=== PATIENT | male | born 1945 | race Caucasian/White ===

== ENCOUNTER 2018-06-14 12:19 | Outpatient (CLI) | payer OTHER, SELFPAY ==
--- NOTE | 2018-06-14 12:49 | DI.REPORT_ITS ---
SYMPTOM/DIAGNOSIS: CHRONIC KIDNEY DISEASE N18.4, RT KIDNEY CA, C64.1 CALCULUS OF KIDNEY N20.0 CHEST X-RAY: PA and lateral. Comparison 02/27/17 Heart size and pulmonary vasculature are within normal limits. The lungs are clear and well expanded. No effusions or pneumothoraces are identified. IMPRESSION: No acute pulmonary process.
--- NOTE | 2018-06-14 13:00 | DI.REPORT_ITS ---
SYMPTOM/DIAGNOSIS: CHRONIC KIDNEY DISEASE, N18.4 RT KIDNEY CA C64.1 CALCULUS KIDNEY N20.0 KUB: Comparison 02/27/17. Comparison CT scan is 04/22/18 The visualized lung bases are clear. There are surgical clips in the right upper quadrant of the abdomen. No urinary tract calculi are identified. There are moderately severe degenerative changes seen in the lumbar spine particularly at the L1, L2 disc level. Degenerative changes are seen in the hips bilaterally which are mild in degree. Vascular calcifications are present. IMPRESSION: No definite urinary tract calculi.
== END 2018-06-14 12:20 ==
PROVIDERS: PCP Family Medicine; Visit Provider Urology
DX: N18.4 Chronic kidney disease, stage 4 (severe) (principal); C64.1 Malignant neoplasm of right kidney, except renal pelvis
CPT/HCPCS: 71046; 74018

== ENCOUNTER 2018-06-23 10:49 | Outpatient (CLI) | payer OTHER, SELFPAY ==
[2018-06-23 11:33] LABS: HCT 34.4 % (40.0-50.0); HGB 10.9 g/dL (13.5-17.5); Mean Corp. HGB Concentration 31.7 g/dL (32.0-36.0); Mean Corpuscular Hemoglobin 31.2 pg (27.0-33.0); Mean Corpuscular Volume 98.6 fL (80-95); Mean Platelet Volume 9.4 fL (8.0-11.0); Platelet Count 179 x1000/uL (130-400); RBC 3.49 m/cumm (4.50-6.00); RBC Distribution Width 12.4 % (11.8-14.1); White Blood Cell Count 6.25 k/cumm (4.4-10.8)
[2018-06-23 12:14] LABS: ALT 26 U/L (12-78); AST 21 U/L (15-37); Albumin 3.3 g/dL (3.4-5.0); Alkaline Phosphatase 97 U/L (46-116); Anion Gap 10.4 mmol/L (3-11); BUN 71 mg/dL (7-18); Bilirubin, Total 0.4 mg/dL (0.2-1.0); CO2 22.6 mmol/L (21.0-32.0); CREATININE 2.73 mg/dL (0.70-1.30); Calcium 8.2 mg/dL (8.5-10.1); Chloride 108 mmol/L (98-107); Estimated GFR 23.12 (mL/min/1.73m2); Glucose 89 mg/dL (70-100); Sodium 141 mmol/L (136-145); Total Protein 7.5 g/dL (6.4-8.2)
[2018-06-23 12:42] LABS: Potassium 6.5 mmol/L (3.5-5.1)
== END 2018-06-23 10:50 ==
PROVIDERS: Urology; PCP Family Medicine; Visit Provider Family Medicine
DX: E87.5 Hyperkalemia (principal); N18.4 Chronic kidney disease, stage 4 (severe); C64.1 Malignant neoplasm of right kidney, except renal pelvis; N20.0 Calculus of kidney
CPT/HCPCS: 36415; 80053; 85027; 84132

== ENCOUNTER 2018-06-29 13:32 | Outpatient (CLI) | payer OTHER, SELFPAY ==
[2018-06-29 15:42] LABS: Anion Gap 9.4 mmol/L (3-11); BUN 73 mg/dL (7-18); CO2 25.6 mmol/L (21.0-32.0); CREATININE 2.87 mg/dL (0.70-1.30); Chloride 107 mmol/L (98-107); Estimated GFR 21.76 (mL/min/1.73m2); Glucose 157 mg/dL (70-100); Potassium 5.3 mmol/L (3.5-5.1); Sodium 142 mmol/L (136-145)
== END 2018-06-29 13:33 ==
PROVIDERS: PCP Family Medicine; Visit Provider Family Medicine
DX: E87.5 Hyperkalemia (principal)
CPT/HCPCS: 36415; 80048

== ENCOUNTER 2018-07-06 03:21 | Outpatient (CLI) | payer OTHER, SELFPAY ==
[2018-07-06 11:53] LABS: Anion Gap 7.2 mmol/L (3-11); BUN 71 mg/dL (7-18); CO2 25.8 mmol/L (21.0-32.0); Calcium 8.1 mg/dL (8.5-10.1); Chloride 106 mmol/L (98-107); Estimated GFR 26.74 (mL/min/1.73m2); Glucose 135 mg/dL (70-100); Potassium 4.8 mmol/L (3.5-5.1); Sodium 139 mmol/L (136-145)
== END 2018-07-06 03:22 ==
PROVIDERS: PCP Family Medicine; Visit Provider Family Medicine
DX: E87.5 Hyperkalemia (principal)
CPT/HCPCS: 36415; 80048

== ENCOUNTER 2018-07-18 13:14 | Emergency (ER) | payer OTHER, SELFPAY ==
[2018-07-18] VITALS (28 sets, daily range): BP systolic 95–111; BP diastolic 33–63; PULSE 61–90; RESP 13–22; TEMP 36.7; O2SAT 89–99
[2018-07-18] MEDS: Dextrose 50%-Water 25 GM/50 ML SYR (13:30)
--- NOTE | 2018-07-18 13:33 | DI.RAD_ITS ---
SYMPTOM/DIAGNOSIS: NEAR SYNCOPE PORTABLE CHEST: Comparison is made with 14 June 2018. The heart is mildly enlarged, unchanged. The lungs are suboptimally inflated but appear clear. Leads overlie the chest. IMPRESSION: No acute abnormality.
[2018-07-18] MEDS: Normal Saline 1,000 ML 1000 ML IV (13:45)
[2018-07-18 13:48] LABS: Abs Immature Grans 0.02 k/cumm (0.0-0.09); Absolute Basophil Count 0.02 k/cumm (0.0-0.2); Absolute Eosinophil Count 0.12 k/cumm (0.0-0.7); Absolute Monocyte Count 0.32 k/cumm (0.11-0.7); Absolute Neutrophil Count 4.25 k/cumm (1.2-6.7); Basophils % 0.3; HCT 31.3 % (40.0-50.0); HGB 10.2 g/dL (13.5-17.5); Immature Grans % 0.3; Lymphocytes % 21.6; Mean Corp. HGB Concentration 32.6 g/dL (32.0-36.0); Mean Corpuscular Hemoglobin 31.8 pg (27.0-33.0); Mean Corpuscular Volume 97.5 fL (80-95); Mean Platelet Volume 9.2 fL (8.0-11.0); Monocytes % 5.3; Neutrophils % 70.5; Platelet Count 195 x1000/uL (130-400); RBC 3.21 m/cumm (4.50-6.00); RBC Distribution Width 11.9 % (11.8-14.1); White Blood Cell Count 6.03 k/cumm (4.4-10.8)
--- NOTE | 2018-07-18 13:48 | W.ED.GENAD ---
Discharge Plan Disposition Patient Disposition: HOME Condition: Good Discharge Details Chief Complaint: Diabetes Clinical Impression: Weakness, Hypoglycemia Primary Care Provider: Cesar Gorman ED Provider: Dexter Reeves Home Meds and New Rx's Prescriptions: No Action multivitamin 1 EACH capsule 1 cap PO DAILY RF: 0 omega-3 fatty acids-fish oil 1 EACH capsule 1 ea PO BID RF: 0 lancets [OneTouch UltraSoft Lancets] 1 EACH misc 1 ea Intradermal DAILY Qty: 100 RF: 5 hydrocortisone 28.4 GM cream 1 guillermo Topical TID PRNQty: 3 RF: 4 aspirin [Aspir-Low] 81 MG tablet,delayed release (DR/EC) 1 tab PO DAILY RF: 0 lisinopril 10 MG tablet 10 mg PO DAILY Qty: 90 RF: 4 furosemide 40 MG tablet 40 mg PO DAILY Qty: 90 RF: 3 blood sugar diagnostic [OneTouch Ultra Test] 1 EACH strip 1 ea Miscellaneous DAILY Qty: 100 RF: 4 tamsulosin 0.4 MG capsule 0.4 mg PO DAILY Qty: 90 RF: 4 pravastatin [Pravachol] 20 MG tablet 20 mg PO DAILY Qty: 90 RF: 4 ergocalciferol (vitamin D2) [Vitamin D2] 50,000 UNIT capsule 1 cap PO Monthly Qty: 12 RF: 0 solifenacin [Vesicare] 5 MG tablet 5 mg PO DAILY Qty: 90 RF: 4 glipizide 5 MG tablet 5 mg PO DAILY Qty: 90 RF: 4 sodium polystyrene sulfonate [sodium polystyrene (sorb free)] 15 GM/60 ML suspension 15 g PO BID Qty: 1000 RF: 1 gabapentin 600 MG tablet 600 mg PO HS Qty: 30 RF: 3 sodium polystyrene sulfonate [Kalexate] 15 gram powder in packet 15 gm PO DAILY Qty: 72 RF: 3 acetaminophen [Tylenol] 325 MG tablet 1 tab PO Q4H PRN PRN (Reason: joint pains or headache) Qty: 60 RF: 0 alum-mag hydroxide-simeth [Mag-Al Plus] 30 ML suspension 30 ml PO Q2H PRN PRNRF: 0 nystatin 60 GM powder 1 gm Topical BID RF: 0 lactobacillus combination no.4 [Probiotic] 1 EACH capsule 1 cap PO DAILY RF: 0 Discharge Instructions Instructions: Diabetic Hypoglycemia (ED), Weakness (ED) Additional Instructions: Please make sure to check your sugar level every 2 hours for the next 12 hours or until you go to bed. Please continue to snack throughout the day to maintain your sugar levels. If you notice any worsening of your symptoms, or any new symptoms such as vomiting, diarrhea, fever, chills, shortness of breath, chest pain, numbness, weakness, or fainting , please return immediately to the emergency department for reevaluation. Please follow up with your primary care provider as soon as possible for reassessment and reevaluation. As always, it was a pleasure participating in your medical care today. Referrals: Cesar Gorman MD [Primary Care Provider] - Discharge Data Discharge Date/Time-TO BE ENTERED AT DEPARTURE: 07/18/18 17:15 Medical Decision Making MDM Narrative Medical decision making narrative: This is a pleasant 73-year-old male who presents for evaluation of weakness in his lower extremities. Sounds like his legs just gave out on him while he was walking in the grocery store. He is able to stand during all singing at [employer] and had no difficulty before. Surprisingly physical exam showed no abnormalities whatsoever, no weakness, no neurologic deficits. While evaluating the patient we did perform a side Accu-Chek secondary to his diabetes, concern for hypoglycemia. His Accu-Chek did return in the low 40s. Patient was immediately given an amp of D50. Review of the patient's history he states that he did take his glipizide this morning, however he has not been eating. Normally he eats food whenever he takes his meds but he did not today because he was dressed for [employer]. The patient had a continued observation. In the ED, laboratory workup was performed and demonstrated no significant abnormalities. He demonstrated mild macrocytic anemia however review of previous labs demonstrates that these findings are chronic for him. He also demonstrates an elevated creatinine at 2.76 however review of previous labs demonstrate that this is his baseline. Patient was also rehydrated here in the emergency department. EKG shows no acute process. During her prolonged observation. We got serial Accu-Cheks which continued to demonstrate a normal blood sugar. Patient ate well without any difficulty. Sugars remained stable. This time I feel that he can be safely discharged home. Long discussion with him regarding the importance of hourly to 2 hourly Accu-Cheks at home, and continued snacking as he plays catch up for his low sugar. We did get the patient up and ambulated him around the emergency department he showed no signs of weakness or abnormality whatsoever. We discussed red flags which should return the patient understands. I have extensively reviewed the treatment plan and discharge instructions with the patient and their family. I have addressed all patient concerns at this time. The patient and family was made aware of what symptoms to monitor for that would warrant a return to the emergency department. Discussed the plan with the patient and family, they demonstrate verbal understanding and agreement with our assessment and plan at this time. Chest x-ray was reviewed and demonstrates no acute process. EKG 13: 32 Rate 76, WA 198, QTc 434, QRS 160, sinus rhythm. No ST elevations or depressions. No significant T-wave inversions. No Q waves. EKG unchanged from prior EKG on 04/22/18. HPI - General Adult General Date/Time Provider Initiated Documentation: 07/18/18 13:32. HPI Narrative: This is a 73-year-old male with a past medical history of type II diabetes mellitus, hyperlipidemia, cholecystectomy in April, nephrectomy secondary to renal cancer in 2015. He takes glipizide for his diabetes. Patient presents today for weakness in his legs. Patient states that he took his medications this morning but has not eaten throughout the day. He had no difficulty standing or performing any of his duties in [employer], he went to the grocery store not long after well at the grocery store he began to feel very weak all over, he states his legs just gave out on him. He tried holding onto the cart but was unable to keep himself up. Eventually found to the ground. He landed softly, he did not hit his head, he slowly lowered himself to the ground without any trauma. EMS arrived and brought him to the ER for further evaluation. The patient has not attempted to stand since then. Patient denies any other pain or complaints whatsoever. He does admit to feeling slightly fatigued but denies any chest pain, neck pain, headache, vision changes, numbness, tingling. He actually denies any weakness of his lower extremities and moves them freely in front of me. The patient has no other complaints at this time. He denies any history of stroke, and states that the symptoms have not happened in the past. He denies any aggravating or relieving factors. He denies any IV or illicit drug use. He denies any pertinent family history. Related Data Home Medications Medication Instructions Recorded Confirmed multivitamin 1 cap PO DAILY 03/25/13 07/18/18 omega-3 fatty acids-fish oil 1 ea PO BID 03/25/13 07/18/18 aspirin [Aspir-Low] 1 tab PO DAILY 10/09/15 07/18/18 lactobacillus combination no.4 1 cap PO DAILY 04/22/18 07/18/18 [Probiotic] Previous Rx's Medication Instructions Recorded acetaminophen [Tylenol] 1 tab PO Q4H PRN PRN #60 tab 08/29/15 alum-mag hydroxide-simeth [Mag-Al 30 ml PO Q2H PRN PRN btl 08/29/15 Plus] nystatin 1 gm TOPICAL BID jar 08/29/15 sodium polystyrene sulfonate 15 15 gm PO DAILY #72 each 07/15/18 gram oral powder packet Allergies Allergy/AdvReac Type Severity Reaction Status Date / Time iohexol AdvReac Unknown Unverified 07/01/18 10:21 novacaine Allergy Intermediate Uncoded 04/22/18 20:21 General Stated Complaint: Trauma SONA: 3 Review of Systems Review of Systems 10 point review of systems was performed, pertinent positives and negatives are noted in the history of present illness. PFSH Family History Mother Essential hypertension Father Essential hypertension Sister Essential hypertension Heart disease Brother Diabetes Grandmother Personal history of malignant neoplasm Social History Smoking/Tobacco Use Status: Former Tobacco Use Surgical History Colonoscopy - MAC (03/20/17) Kidney Surgery Exam Narrative Exam Narrative: 1.Const: Well-nourished, Well-developed, appearing stated age 2.Eyes: PERRL, no conjunctival injection, and symmetrical lids. 3.ENT: Atraumatic external nose and ears. Moist MM. Neck: Symmetric, trachea midline, No thyromegaly. 4.CVS: +S1/S2, No murmurs or gallops. Peripheral pulses 2+ and equal in all extremities. Brisk capillary refill in all extremities. 5.RESP: Unlabored respiratory effort. Clear to auscultation bilaterally. No wheezes rales or rhonchi 6.GI: Soft, Nontender/Nondistended, No hepatosplenomegaly. No guarding or rebound. 7.MSK: Normocephalic/Atraumatic, Extremities w/o deformity or ttp No cyanosis or clubbing, Normal movement of all extremities 5 out of 5 strength in all extremities. Normal movement of his upper and lower extremities. Normal sensation. Brisk capillary refill. +2 dorsalis pedis bilaterally. 8.Skin: Warm, Dry. No rashes or lesions. 9.Neuro: watch train inspector II-XII grossly intact. Sensation grossly intact, no focal neurologic deficits. All 6 cardinal planes of vision or fully intact. No evidence of horizontal or vertical nystagmus. The patient demonstrated a normal [id number], good dexterity. There was no evidence of dysdiadochokinesia. Patient was able to ambulate without difficulty. There was no wide-based gait. Romberg, and [id number] are both normal on testing. Sensation was intact bilaterally as well as muscle strength bilaterally for all extremities. Patient was able to verbalize butter cup with no slurring, or miss pronunciation. No midline tenderness to palpation over the CTLS spine. Normal ROM in flexion, extension, side bend, and rotation. Patient has +5 out of 5 strength in the lower extremities in dorsiflexion and plantarflexion, knee flexion and extension, hip flexion and extension. There is +2 over 2 dorsalis pedis pulses bilaterally. There is normal sensation to the skin with light touch at the foot, knee, and hip. Normal saddle sensation. Good sensation over the deep sural nerve area bilaterally. Rectal exam demonstrates good rectal tone. Reflexes are +2 over 4 in the patellar reflex bilaterally. +5 out of 5 strength in the medial, ulnar, radial nerve distribution bilaterally in the hands as well as intact light touch sensation to these dermatomes on the hands 10.Psych: (AAO) x3. Appropriate mood and affect Course Vital Signs Temperature 36.7 C 07/18/18 13:19 Pulse 69 07/18/18 13:19 Respiratory Rate 14 07/18/18 13:19 Blood Pressure 109/36 L 07/18/18 13:19 Pulse Oximetry 94 L 07/18/18 13:19 Temperature 36.7 C 07/18/18 13:19 Pulse 69 07/18/18 13:19 Respiratory Rate 14 07/18/18 13:19 Blood Pressure 109/36 L 07/18/18 13:19 Pulse Oximetry 94 L 07/18/18 13:19
[2018-07-18 13:58] LABS: ALT 21 U/L (12-78); AST 19 U/L (15-37); Alkaline Phosphatase 83 U/L (46-116); Anion Gap 7.7 mmol/L (3-11); BUN 61 mg/dL (7-18); Bilirubin, Total 0.3 mg/dL (0.2-1.0); CO2 27.3 mmol/L (21.0-32.0); CREATININE 2.76 mg/dL (0.70-1.30); Calcium 8.2 mg/dL (8.5-10.1); Chloride 105 mmol/L (98-107); Estimated GFR 22.76 (mL/min/1.73m2); Glucose 159 mg/dL (70-100); Potassium 4.8 mmol/L (3.5-5.1); Sodium 140 mmol/L (136-145)
--- NOTE | 2018-07-18 15:04 | DI.VRAD_ITS ---
EXAM: XR Chest, 1 View CLINICAL HISTORY: 73 years old, male; Signs and symptoms; Other: Near syncope TECHNIQUE: Frontal view of the chest. COMPARISON: CR - CHEST 2 VIEWS PA,LAT 06/14/2018 12:39 PM FINDINGS: Minimal interstitial lung scarring. No focal pulmonary consolidation. Costophrenic angle sharp. Heart prominent but unchanged from the prior exam and accentuated by technique. IMPRESSION: No evidence of acute cardiopulmonary disease. Dictated and Authenticated by: Parker Linares MD. Ordering:CASSIDY MCDANIELS MD
== END 2018-07-18 17:15 | disposition home or self-care (01) ==
PROVIDERS: Emergency Provider Student in an Organized Health Care Education/Training Program; PCP Family Medicine
DX: R53.1 Weakness (principal); E11.649 Type 2 diabetes mellitus with hypoglycemia without coma; Z79.84 Long term (current) use of oral hypoglycemic drugs
CPT/HCPCS: 36415; 36416; 80053; 82962; 93005; 96360; 96361; 99285; 71045; 85025; 93010

== ENCOUNTER 2018-10-14 02:48 | Outpatient (CLI) | payer OTHER, SELFPAY ==
[2018-10-14 12:06] LABS: Anion Gap 9.9 mmol/L (3-11); CO2 20.1 mmol/L (21.0-32.0); CREATININE 3.49 mg/dL (0.70-1.30); Calcium 8.4 mg/dL (8.5-10.1); Chloride 109 mmol/L (98-107); Estimated GFR 17.36 (mL/min/1.73m2); Glucose 91 mg/dL (70-100); Sodium 139 mmol/L (136-145)
[2018-10-14 12:09] LABS: BUN 106 mg/dL (7-18)
[2018-10-14 12:10] LABS: Potassium 6.4 mmol/L (3.5-5.1)
== END 2018-10-14 03:08 ==
PROVIDERS: PCP Family Medicine; Visit Provider Family Medicine
DX: E87.5 Hyperkalemia (principal)
CPT/HCPCS: 36415; 80048; 83036

== ENCOUNTER 2018-10-21 01:59 | Outpatient (CLI) | payer OTHER, SELFPAY ==
[2018-10-21 11:23] LABS: CREATININE 2.64 mg/dL (0.70-1.30); Calcium 8.2 mg/dL (8.5-10.1); Chloride 109 mmol/L (98-107); Estimated GFR 23.96 (mL/min/1.73m2); Glucose 97 mg/dL (70-100); Potassium 4.7 mmol/L (3.5-5.1); Sodium 146 mmol/L (136-145)
[2018-10-21 11:47] LABS: BUN 90 mg/dL (7-18)
== END 2018-10-21 02:19 ==
PROVIDERS: PCP Family Medicine; Visit Provider Family Medicine
DX: E87.5 Hyperkalemia (principal); E11.9 Type 2 diabetes mellitus without complications
CPT/HCPCS: 36415; 80048

== ENCOUNTER 2019-01-25 02:32 | Outpatient (CLI) | payer OTHER, SELFPAY ==
[2019-01-25 13:19] LABS: Anion Gap 10.3 mmol/L (3-11); BUN 65 mg/dL (7-18); CO2 23.7 mmol/L (21.0-32.0); CREATININE 2.74 mg/dL (0.70-1.30); Calcium 8.6 mg/dL (8.5-10.1); Chloride 106 mmol/L (98-107); Estimated GFR 22.95 (mL/min/1.73m2); Glucose 174 mg/dL (70-100); Potassium 5.5 mmol/L (3.5-5.1); Sodium 140 mmol/L (136-145)
[2019-01-25 13:32] LABS: Hemoglobin A1C 5.3 % (4.5-6.2)
== END 2019-01-25 02:52 ==
PROVIDERS: PCP Family Medicine; Visit Provider Family Medicine
DX: E11.9 Type 2 diabetes mellitus without complications (principal); E87.5 Hyperkalemia
CPT/HCPCS: 36415; 80048; 83036

== ENCOUNTER 2019-02-09 12:50 | Outpatient (CLI) | payer OTHER, SELFPAY ==
[2019-02-09 14:05] LABS: BUN 33 mg/dL (7-18); CREATININE 1.97 mg/dL (0.70-1.30); Chloride 106 mmol/L (98-107); Estimated GFR 33.59 (mL/min/1.73m2); Glucose 124 mg/dL (70-100); Potassium 4.2 mmol/L (3.5-5.1); Sodium 141 mmol/L (136-145)
== END 2019-02-09 13:10 ==
PROVIDERS: PCP Family Medicine; Visit Provider Family Medicine
DX: E87.5 Hyperkalemia (principal)
CPT/HCPCS: 36415; 80048

== ENCOUNTER 2019-02-10 17:20 | Inpatient (IN) | payer OTHER, SELFPAY ==
[2019-02-10] VITALS (60 sets, daily range): BP systolic 120–189; BP diastolic 53–108; PULSE 58–125; RESP 4–35; TEMP 36.8–38; O2SAT 77–99
--- NOTE | 2019-02-10 17:38 | ED.GENADUL_ITS ---
Discharge Plan Disposition Patient Disposition: [facility] INPATIENT Condition: Serious Discharge Details Chief Complaint: RespSymp Clinical Impression: Pneumonia, Acute exacerbation of CHF (congestive heart failure) Admit Date/Time: 02/10/19 18:56 Admit Provider: Carlos A Chong Attending Provider: Carlos A Chong Primary Care Provider: Cesar Gorman ED Provider: Kassi Rivera Discharge Data Discharge Date/Time-TO BE ENTERED AT DEPARTURE: 02/10/19 21:00 Medical Decision Making 1725 -- 73-year-old male with a history of sleep apnea, diabetes, hypertension, congestive heart failure, hyperlipidemia, chronic kidney disease status post right nephrectomy who presents with shortness of breath and chills for the past few hours. Temp 100.4 on arrival, unable to obtain accurate oral temperature due to patient's inability to hold mouth closed due to shortness of breath. Oxygen saturation 77% on room air. Patient tachypneic with increased work of breathing and accessory muscle use. Diminished breath sounds and scattered wheezing throughout. Less than 1+ pitting edema to bilateral lower extremities. Patient is morbidly obese. He initially stated he had no medical problems except obstructive sleep apnea. The chart reveals that he has extensive medical history including CHF, diabetes, etc above. He states he took his Lasix today. Differential diagnosis includes influenza, pneumonia, UTI, acute CHF exacerbation, acute COPD, CT. Patient states he smoked as a young man and denies any known history of COPD. Will place patient on BiPAP, obtain labs, portable chest x-ray, give nebs, steroids and plan for admission. Pt's chart noted that he is DNR/DNI but when asked if he would want intubation if needed, he states sure if you need to. 1745 -- patient with some improvement in breathing on BiPAP. 1800 -- respiratory rate improved, patient more comfortable on BiPAP 1830 -- labs and imaging reviewed. White blood cell count 12. Hemoglobin 11. Normal electrolytes. Lactate 1.5. Magnesium 1.7. BNP 3749. Troponin negative. Urinalysis negative. Influenza negative. Chest x-ray notes edema versus pneumonia. In the setting of fever, appears likely more infectious, small bolus of 250 cc IV fluid ordered. With elevated BNP and questionable edema, a dose of Lasix also ordered. Rocephin and Zithromax ordered. 185 -- d/w hospitalist - accepts pt for admission. Medical Records Medical records reviewed: Yes I reviewed the patient's medical records. Imaging Data Radiologic Study: Radiologist's impression: XR Chest, 1 View EXAM DATE/TIME: 02/10/2019 5:40 PM FINDINGS: Lungs: There is mild prominence to interstitial markings with increased haziness noted in the lung westfall. There is mild bilateral segmental bronchial wall thickening appreciated. Faint bilateral perihilar patchy opacifications are also noted. Pleural space: Unremarkable. No pleural effusion. No pneumothorax. Heart/Mediastinum: The heart is mildly enlarged. Bones/joints: No acute skeletal abnormalities are seen. IMPRESSION: Findings concerning for mild/early acute interstitial and airspace disease for which the main diagnostic consideration would be that of pulmonary interstitial/airspace edema. Superimposed infectious pneumonic process should be entertained in the appropriate clinical setting. ECG Data Attestation: I personally reviewed and interpreted this ECG (s) as follows: Interpretation: Rate of 120, sinus, RBBB. LAFB. [address] depression noted in V5 and V6 which is seen in previous EKG. QTc read as 622 but this is inaccurate. QRS read as 218. HPI General Mode of arrival: ambulatory . Date/Time Provider Initiated Documentation: 02/10/19 17:31 . Limitations to Documentation: no limitations . Information obtained by: patient . HPI Narrative: Patient is a 73-year-old male with a history of obstructive sleep apnea, diabetes, hypertension, kidney cancer status post right nephrectomy, congestive heart failure who presents with shortness of breath and feeling cold for the past 2 hours. He denies any known fevers, cough, vomiting, chest pain, leg swelling, recent hospital admission or chest pain. He states he did receive the flu shot this year. Related Data Home Medications Medication Instructions Recorded Confirmed hydrocortisone 1 guillermo TOPICAL TID PRN #3 script 03/25/13 02/10/19 lancets [OneTouch UltraSoft #100 ea 03/25/13 01/27/19 Lancets] multivitamin 1 cap PO DAILY 03/25/13 02/10/19 omega-3 fatty acids-fish oil 1 ea PO BID 03/25/13 02/10/19 acetaminophen [Tylenol] 1 tab PO Q4H PRN PRN #60 tab 08/29/15 02/10/19 alum-mag hydroxide-simeth [Mag-Al 30 ml PO Q2H PRN PRN btl 08/29/15 02/10/19 Plus] nystatin 1 gm TOPICAL BID jar 08/29/15 02/10/19 aspirin [Aspir-Low] 1 tab PO DAILY 10/09/15 02/10/19 lactobacillus combination no.4 1 cap PO DAILY 04/22/18 02/10/19 [Probiotic] blood sugar diagnostic strips #100 strip 11/15/18 01/27/19 furosemide 40 mg tablet 40 mg PO DAILY #90 tab 11/24/18 02/10/19 ergocalciferol (vitamin D2) 50,000 50,000 unit PO Monthly #12 tab-cap 12/24/18 02/10/19 unit capsule glipizide 5 mg tablet 5 mg PO DAILY #90 tab-cap 12/24/18 02/10/19 pravastatin 20 mg tablet 20 mg PO DAILY #90 tab-cap 12/24/18 02/10/19 solifenacin 5 mg tablet 5 mg PO DAILY #90 tab 12/24/18 02/10/19 tamsulosin 0.4 mg capsule 0.4 mg PO DAILY #90 capcr 12/24/18 02/10/19 sodium polystyrene sulfonate 15 60 ml PO DAILY #600 ml 01/25/19 02/10/19 gram/60 mL oral suspension gabapentin 600 mg tablet 600 mg PO HS #90 tab-cap 01/27/19 02/10/19 Previous Rx's Medication Instructions Recorded acetaminophen [Tylenol] 1 tab PO Q4H PRN PRN #60 tab 08/29/15 alum-mag hydroxide-simeth [Mag-Al 30 ml PO Q2H PRN PRN btl 08/29/15 Plus] nystatin 1 gm TOPICAL BID jar 08/29/15 blood sugar diagnostic strips #100 strip 11/15/18 furosemide 40 mg tablet 40 mg PO DAILY #90 tab 11/24/18 ergocalciferol (vitamin D2) 50,000 50,000 unit PO Monthly #12 tab-cap 12/24/18 unit capsule glipizide 5 mg tablet 5 mg PO DAILY #90 tab-cap 12/24/18 pravastatin 20 mg tablet 20 mg PO DAILY #90 tab-cap 12/24/18 solifenacin 5 mg tablet 5 mg PO DAILY #90 tab 02/15/19 tamsulosin 0.4 mg capsule 0.4 mg PO DAILY #90 capcr 12/24/18 sodium polystyrene sulfonate 15 60 ml PO DAILY #600 ml 01/25/19 gram/60 mL oral suspension gabapentin 600 mg tablet 600 mg PO HS #90 tab-cap 01/27/19 Allergies Allergy/AdvReac Type Severity Reaction Status Date / Time iohexol AdvReac Unknown Unverified 02/10/19 17:38 novacaine Allergy Intermediate Uncoded 02/10/19 17:38 General Stated Complaint: RespSymp SONA: 2 Review of Systems Review of Systems All systems reviewed & are unremarkable except as noted in HPI and below Constitutional Reports as per HPI, Denies chills and Denies fever(s) Eyes Denies blurry vision ENT Denies dizziness, Denies sore throat and Denies throat swelling Cardiovascular Denies chest pain and Reports dyspnea Respiratory Denies cough and Reports dyspnea Gastrointestinal Denies abdominal pain, Denies diarrhea and Denies vomiting Genitourinary Denies hematuria and Denies dysuria Musculoskeletal Denies back pain and Denies numbness Integumentary/Breasts Denies lesions and Denies rash Neurologic Denies dizziness, Denies focal weakness and Denies numbness Allergic/Immunologic Denies throat swelling PFSH Medical History Heart failure with preserved ejection fraction (Chronic 08/22/15) Tubular adenoma of colon (Resolved 03/20/17) Primary osteoarthritis of left knee (Chronic 07/01/18) Osteoarthritis (Chronic) Obesity (Chronic) Mild nonproliferative diabetic retinopathy (Chronic) Kidney calculus (Chronic 10/08/03) Joint pain (Chronic) Hyperkalemia (Chronic 07/01/18) Hypercholesterolemia (Chronic) Essential hypertension (Chronic 07/24/15) Edema (Chronic) Disorder characterized by back pain (Chronic) Diabetic polyneuropathy associated with type 2 diabetes mellitus (Chronic 07/24/15) Diabetes mellitus (Chronic 07/20/13) Common bile duct calculi (Resolved 09/18/17) 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) Chronic renal insufficiency, stage III (moderate) (Chronic 04/08/18) Morbid obesity (Chronic) Cholelithiasis (Chronic) Type II diabetes mellitus (Chronic) Chronic low back pain (Chronic) Hyperlipidemia (Chronic) History of nephrolithiasis (Chronic) Osteoarthrosis (Chronic) Chronic venous insufficiency (Chronic) Obstructive sleep apnea (Chronic) Chronic kidney insufficiency (Chronic) Congestive heart failure (Chronic) Urgency incontinence (Chronic) Diabetes (Chronic) HTN (hypertension) (Chronic) Obstructive sleep apnea (Chronic) Cholelithiasis without obstruction (Resolved) Surgical History History of nephrectomy (Acute) Hx of cholecystectomy (Chronic) Colonoscopy - MAC (03/20/17) Kidney Surgery Family History Mother Essential hypertension Father Essential hypertension Sister Essential hypertension Heart disease Brother Diabetes Grandmother Personal history of malignant neoplasm Social History Smoking/Tobacco Use Status: Former Tobacco Use Tobacco: How many years used: 6 Alcohol Intake: never Drug use: Never Substance use type: does not use Household members: family and other Details: niece Housing: apartment current occupation: retired telecommunications linesworker at [email or web address]; formerly lived [place], [place] Do you feel safe at home: Yes Do you feel safe in your relationship?: Yes Exam Const General: cooperative and acute distress respiratory Nutritional Appearance: obese morbidly obese [facility] Head: normal to inspection Face and sinus: normal facial exam Eyes General: appearance normal, both eyes and all related structures EOM: EOM intact bilaterally Neck Neck: normal visual inspection and No submandibular swelling Lymphatic: no lymphadenopathy noted Chest Chest: normal inspection of the chest and no tenderness Resp Effort & Inspection: normal respiratory effort and able to speak in complete sentences (4-5 word sentences) Auscultation: diminished lung sounds bilaterally throughout and wheezes scattered wheezes Cardio Rate: tachycardic Rhythm: regular rhythm GI Inspection: normal to inspection and obesity Palpation: soft, not firm, not rigid and nontender Auscultation: normal bowel sounds Skin General skin exam: no rashes or lesions noted Neuro General: alert, awake and oriented x3 Cognition: normal cognition Speech: speech normal Motor: muscle tone normal throughout Sensory Exam: no sensory deficits noted Extrem General: normal to inspection, full ROM, no calf tenderness bilaterally and edema Laterality: bilateral (Less than 1+ pitting bilaterally) Psych Appearance: grossly normal Mental Status: mental status grossly normal Speech and Movement: speech and movement normal Affect: normal affect Course Vital Signs Temperature 100.4 F H 02/10/19 17:32 Pulse 103 H 02/10/19 17:32 Respiratory Rate 28 H 02/10/19 17:32 Blood Pressure 156/77 H 02/10/19 17:32 Pulse Oximetry 84 L 02/10/19 17:32 Temperature 100.4 F H 02/10/19 17:32 Temperature Source Oral 02/10/19 17:32 Pulse 103 H 02/10/19 17:32 Respiratory Rate 28 H 02/10/19 17:32 Respiratory Effort Grunting 02/10/19 17:37 Blood Pressure 156/77 H 02/10/19 17:32 Pulse Oximetry 84 L 02/10/19 17:32 Oxygen Delivery Method Room Air 02/10/19 17:32 Oxygen Flow Rate 0 02/10/19 17:32 Pain Level 0 02/10/19 17:32 Lab/Test Results Lab/Test Results: 02/10/19 17:31 Blood Blood Culture - Pending 02/10/19 17:31 Blood Blood Culture - Pending
[2019-02-10] MEDS: Albuterol/Ipratropium 3 ML UPD VIAL (17:45)
[2019-02-10] MEDS: methylPREDNISolone SUCC 125 MG VIAL IVP (17:45)
[2019-02-10] MEDS: Albuterol 2.5 MG/3 ML INH SOLN VIAL 7.5 MG UPD (17:46)
[2019-02-10] MEDS: Acetaminophen 500 MG TAB 1000 MG PO (17:48)
[2019-02-10 17:54] LABS: Lactate-non-spesis 1.5 mmol/l (0.6-1.4)
[2019-02-10 18:08] LABS: Abs Immature Grans 0.04 k/cumm (0.0-0.09); Absolute Eosinophil Count 0.37 k/cumm (0.0-0.7); Absolute Lymphocyte Count 2.66 k/cumm (1.2-3.4); Absolute Monocyte Count 1.28 k/cumm (0.11-0.7); Basophils % 0.2; HCT 35.4 % (40.0-50.0); HGB 11.5 g/dL (13.5-17.5); Immature Grans % 0.3; Lymphocytes % 21.6; Mean Corp. HGB Concentration 32.5 g/dL (32.0-36.0); Mean Corpuscular Hemoglobin 31.7 pg (27.0-33.0); Mean Corpuscular Volume 97.5 fL (80-95); Mean Platelet Volume 9.8 fL (8.0-11.0); Monocytes % 10.4; Neutrophils % 64.5; Platelet Count 193 x1000/uL (130-400); RBC 3.63 m/cumm (4.50-6.00); RBC Distribution Width 12.3 % (11.8-14.1)
[2019-02-10 18:09] LABS: Absolute Basophil Count 0.02 k/cumm (0.0-0.2); Absolute Neutrophil Count 7.93 k/cumm (1.2-6.7)
--- NOTE | 2019-02-10 18:10 | DI.RAD_ITS ---
SYMPTOM/DIAGNOSIS: SOB, FEVER, ? PNEUMONIA VS CHF PORTABLE AP CHEST AT 1805 HOURS: The heart is mildly enlarged. There are mild diffuse bilateral pulmonary interstitial infiltrates raising the possibility of early CHF. Infectious process not excluded on the basis of this examination. Appropriate follow up studies requested.
[2019-02-10 18:19] LABS: ALT 36 U/L (12-78); AST 29 U/L (15-37); Albumin 3.4 g/dL (3.4-5.0); Alkaline Phosphatase 133 U/L (46-116); Anion Gap 10.5 mmol/L (3-11); BUN 31 mg/dL (7-18); Bilirubin, Total 0.4 mg/dL (0.2-1.0); CO2 26.5 mmol/L (21.0-32.0); CREATININE 1.95 mg/dL (0.70-1.30); Calcium 8.4 mg/dL (8.5-10.1); Chloride 102 mmol/L (98-107); Estimated GFR 33.99 (mL/min/1.73m2); Glucose 72 mg/dL (70-100); Magnesium 1.7 mg/dL (1.8-2.4); NT-proBNP 3749 pg/mL; Potassium 3.9 mmol/L (3.5-5.1); Sodium 139 mmol/L (136-145); Total Protein 8.4 g/dL (6.4-8.2); Troponin I 0.02 ng/mL (0.00-0.06)
[2019-02-10 18:24] LABS: Bilirubin Negative (Negative); Blood Negative (Negative); Clarity Clear; Glucose Negative (Negative); Ketones Negative (Negative); Leukocyte Esterase Negative (Negative); Nitrite Negative (Negative); Urobilinogen 0.2 EU/dL (Up TO 0.2); pH 5.5 (5-8)
[2019-02-10] MEDS: Furosemide 40 MG/4 ML VIAL IVP (18:31)
[2019-02-10] MEDS: Normal Saline 250 ML IV (18:31)
--- NOTE | 2019-02-10 18:31 | DI.VRAD_ITS ---
EXAM: XR Chest, 1 View EXAM DATE/TIME: 02/10/2019 5:40 PM CLINICAL HISTORY: 73 years old, male; Signs and symptoms; Fever and shortness of breath; Patient HX: SOB, fever, R/O pneumonia vs chf TECHNIQUE: Imaging protocol: XR of the chest, 1 view. COMPARISON: SC XR PORTABLE CHEST AP 07/18/2018 2:35 PM FINDINGS: Lungs: There is mild prominence to interstitial markings with increased haziness noted in the lung westfall. There is mild bilateral segmental bronchial wall thickening appreciated. Faint bilateral perihilar patchy opacifications are also noted. Pleural space: Unremarkable. No pleural effusion. No pneumothorax. Heart/Mediastinum: The heart is mildly enlarged. Bones/joints: No acute skeletal abnormalities are seen. IMPRESSION: Findings concerning for mild/early acute interstitial and airspace disease for which the main diagnostic consideration would be that of pulmonary interstitial/airspace edema. Superimposed infectious pneumonic process should be entertained in the appropriate clinical setting. Dictated and Authenticated by: Tremaine Koo MD. Ordering:BEST Solitario MD
[2019-02-10 19:24] LABS: BE -1.8 mmol/L (-3-3); HCO3 23 mmol/L (22-28); pCO2 39 mmHg (34-47); pH 7.38 (7.35-7.45); pO2 77 mmHg (83-108); sO2 97 % (94-98); tCO2 22 mmol/L (22-29)
[2019-02-10] MEDS: cefTRIAXone 1 GM/50 ML BAG IVPB ×2 (19:24→23:36)
[2019-02-10 19:26] LABS: Site Left Radial
[2019-02-10 19:27] LABS: FIO2 28 %; FIO2L BiPAP L
--- NOTE | 2019-02-10 19:34 | NUR.NOTE ---
patient to be admitted, ls noted in all westfall coarse in the left upper airway Nursing Note:
[2019-02-10] MEDS: AZITHROMYCIN 500 MG in Normal Saline 250 ML 250 MG IVPB (19:56)
--- NOTE | 2019-02-10 20:34 | NUR.NOTE ---
patient report given to WILIAM Cherry, patient reported IV was burning, infusion stopped, no signs of onflitration, IV dc'd , MD aware and MD to insert U/S guided IV Nursing Note:
--- NOTE | 2019-02-10 21:12 | HPE_ITS ---
Date of service: 02/10/19 Time of Service: 19:50 Assessment and Plan (1) Heart failure with preserved ejection fraction: Current visit: Yes Status: Chronic iv diuretics; cycle his troponins, repeat his BNP in the a.m. check echocardiogram in a.m. consult w/ cardiology to assist w/ management. Not sure that his renal function can tolerate FAUSTO inhibitor or ARB. Historically he has had creatinines up to 3.49 and BUN up to 106 as of 10/14/2018 but unclear whether or not this was on an FAUSTO-I or ARB. At present I would not challenge him w/ either but rather diurese him and check his LV function. If LVEF is preserved then he ought to be on a beta brett along w/ diuretics and perhaps a vasodilator. (2) Acute on chronic diastolic heart failure: Current visit: Yes Status: Acute as listed above. (3) Community acquired pneumonia of both lungs: Current visit: Yes Status: Acute continue Rocephin but at 2 gm daily along w/ oral azithromycin, prn bronchodilators. check blood culture results. He ought to receive his prevnar 13 prior to discharge. continue steroids but I think that he can take oral prednisone and does not require high dose iv corticosteroids. Attempt to obtain sputum although is cough has been nonproductive (4) Diabetic polyneuropathy associated with type 2 diabetes mellitus: Current visit: No Status: Chronic will withold any oral diabetic agents while he is acutely ill. will cover w/ meal coverage and insulin sensitive aspart sliding scale (5) Chronic renal insufficiency, stage III (moderate): Current visit: No Status: Chronic renal function appears to be moderate to severely impaired but is stable compared to last October. will watch daily BMP and urine output in light of needing diuresis. Avoid FAUSTO inhibitors or ARB in setting of his CKD and unilateral kidney (6) DVT prophylaxis: Current visit: Yes Status: Acute use renal adjusted enoxaparin History of Present Illness Chief Complaint: short of breath and chills Narrative: 73 yr old male w/ PMH of PATI (on BIPAP at home), HTN, DM type 2 w/ CKD, and peripheral neuropathy, HLD, who is s/p R. nephrectomy for renal cell CA presents to the ER w/ acute dyspnea and chills including rigors and nonproductive cough that began today along w/ some chest pressure that improved after oxygen. There have been no ill contacts. He is single but lives w/ his 60 yr old niece who is healthy. Upon arrival he is noted to be febrile 100.4, hypoxemic at 77% on R.A., tachypneic @ 29-35 breaths/minute, with accessory respiratory muscle use, tachycardic at 119 bpm, sinus tach., but not hypotensive (BP 156/77). Dr. Kassi Rivera evaluated and treated the patient in the ER including CXR, EKG, routine l abs including CBC, CMP, troponin, BNP, UA, ABG, blood and urine cultures. CBC demonstrated stable anemia at 11.5 gm, leukocytosis of 12,300 with left shift, CMP with chronic renal insufficiency w/ BUN 31, creatnine of 1.95 (prior levels have been BUN 65 to 90 and creatinine of 2.64-2.74), normal LFT's, and normal troponin of 0.02 but elevated BNP of 3700. UA was unremarkable. Lactate was mildly elevated at 1.5. CXR demonstrated mild bilateral segmental bronchial wall thickening and faint bilateral perihilar patchy opacifications but no pleural effusions and mild cardiomegaly. EKG demonstrated sinus tachycardia@ 120 bpm w/ RBBB and LAFB and non-specific ST depression and T wave changes in lateral leads I, avL and V5,V6. Treatment in the ER included initially a fluid bolus of 250 mL NS but then he was later given furosemide 40 mg IVP. He also received albuterol aerosol treatments, BIPAP and iv solumedrol and antibiotics including Azithromycin and Ceftriaxone. He is now admitted to the ICU for treatment of CAP and CHF. Of note his chart included hx of CHF although he denies any hx of CHF, or [place]. He reportedly had a cardiac evaluation preoperatively at [facility] before his nephrectomy in late 2014 or early 2016. Review of Systems Constitutional Reports body ache(s), Reports chills and Reports fever(s) Eyes Reports blurry vision (had episode of dizziness and blurred vision w/out focal neuro sx on Thu) ENT Reports system reviewed and no additional complaints, except as docu Cardiovascular Reports chest pain at rest (chest pressure w/ his dyspnea today), Denies pedal edema, Denies leg edema, Reports lightheadedness, Reports dyspnea and Reports dyspnea on exertion Respiratory Reports cough, Denies excessive phlegm production, Reports dyspnea, Reports dysp yesica on exertion and Reports wheezing Gastrointestinal Reports system reviewed and no additional complaints, except as docu Genitourinary Reports system reviewed and no additional complaints, except as docu Musculoskeletal Reports system reviewed and no additional complaints, except as docu Integumentary/Breasts Reports system reviewed and no additional complaints, except as docu Neurologic Reports paresthesias (over both feet chronically) Psychiatric Reports system reviewed and no additional complaints, except as docu Endocrine Reports system reviewed and no additional complaints, except as docu Hematologic/Lymphatic Reports system reviewed and no additional complaints, except as docu Allergic/Immunologic Reports system reviewed and no additional complaints, except as docu and Reports wheezing PFSH Medical History Heart failure with preserved ejection fraction (Chronic 08/22/15) Tubular adenoma of colon (Resolved 03/20/17) Primary osteoarthritis of left knee (Chronic 07/01/18) Osteoarthritis (Chronic) Obesity (Chronic) Mild nonproliferative diabetic retinopathy (Chronic) Kidney calculus (Chronic 10/08/03) Joint pain (Chronic) Hyperkalemia (Chronic 07/01/18) Hypercholesterolemia (Chronic) Essential hypertension (Chronic 07/24/15) Edema (Chronic) Disorder characterized by back pain (Chronic) Diabetic polyneuropathy associated with type 2 diabetes mellitus (Chronic 07/24/15) Diabetes mellitus (Chronic 07/20/13) Common bile duct calculi (Resolved 09/18/17) 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) Chronic renal insufficiency, stage III (moderate) (Chronic 04/08/18) Morbid obesity (Chronic) Cholelithiasis (Chronic) Type II diabetes mellitus (Chronic) Chronic low back pain (Chronic) Hyperlipidemia (Chronic) History of nephrolithiasis (Chronic) Osteoarthrosis (Chronic) Chronic venous insufficiency (Chronic) Obstructive sleep apnea (Chronic) Chronic kidney insufficiency (Chronic) Congestive heart failure (Chronic) Urgency incontinence (Chronic) Diabetes (Chronic) HTN (hypertension) (Chronic) Obstructive sleep apnea (Chronic) Cholelithiasis without obstruction (Resolved) Surgical History History of nephrectomy (Acute) Hx of cholecystectomy (Chronic) Colonoscopy - MAC (03/20/17) Kidney Surgery Family History Mother Essential hypertension Father Essential hypertension Sister Essential hypertension Heart disease Brother Diabetes Grandmother Personal history of malignant neoplasm Social History Smoking/Tobacco Use Status: Former Tobacco Use Tobacco: How many years used: 6 Alcohol Intake: never Drug use: Never Substance use type: does not use Household members: family and other Details: niece Housing: apartment current occupation: retired workers compensation specialist at [employer]; formerly lived [place], [place] Do you feel safe at home: Yes Do you feel safe in your relationship?: Yes Meds Home Medications Medication Instructions Recorded Confirmed Type hydrocortisone 1 guillermo TOPICAL TID PRN #3 script 03/25/13 02/10/19 History lancets [OneTouch UltraSoft #100 ea 03/25/13 01/27/19 History Lancets] multivitamin 1 cap PO DAILY 03/25/13 02/10/19 History omega-3 fatty acids-fish oil 1 ea PO BID 03/25/13 02/10/19 History acetaminophen [Tylenol] 1 tab PO Q4H PRN PRN #60 tab 08/29/15 02/10/19 Rx alum-mag hydroxide-simeth [Mag-Al 30 ml PO Q2H PRN PRN btl 08/29/15 02/10/19 Rx Plus] nystatin 1 gm TOPICAL BID jar 08/29/15 02/10/19 Rx aspirin [Aspir-Low] 1 tab PO DAILY 10/09/15 02/10/19 History lactobacillus combination no.4 1 cap PO DAILY 04/22/18 02/10/19 History [Probiotic] blood sugar diagnostic strips #100 strip 11/15/18 01/27/19 Rx furosemide 40 mg tablet 40 mg PO DAILY #90 tab 11/24/18 02/10/19 Rx ergocalciferol (vitamin D2) 50,000 50,000 unit PO Monthly #12 tab-cap 12/24/18 02/10/19 Rx unit capsule glipizide 5 mg tablet 5 mg PO DAILY #90 tab-cap 12/24/18 02/10/19 Rx pravastatin 20 mg tablet 20 mg PO DAILY #90 tab-cap 12/24/18 02/10/19 Rx solifenacin 5 mg tablet 5 mg PO DAILY #90 tab 12/24/18 02/10/19 Rx tamsulosin 0.4 mg capsule 0.4 mg PO DAILY #90 capcr 12/24/18 02/10/19 Rx sodium polystyrene sulfonate 15 60 ml PO DAILY #600 ml 01/25/19 02/10/19 Rx gram/60 mL oral suspension gabapentin 600 mg tablet 600 mg PO HS #90 tab-cap 01/27/19 02/10/19 Rx Allergies Allergy/AdvReac Type Severity Reaction Status Date / Time iohexol AdvReac Unknown Unverified 02/10/19 17:38 novacaine Allergy Intermediate Uncoded 02/10/19 17:38 Exam Const General: cooperative, no acute distress and well groomed Nutritional Appearance: obese morbidly obese Orientation: alert, awake and oriented x3 HENMT Head: normal to inspection and no palpable skull fracture Ears: hearing grossly normal bilaterally General nose exam: external nose normal and nares normal Face and sinus: normal facial exam Mouth: oral mucosae normal Neck Neck: normal visual inspection, full ROM, no lymphadenopathy, trachea midline, supple, no JVD and other (obese neck) Thyroid: thyroid normal Carotids: normal carotid upstroke Lymphatic: no lymphadenopathy noted Chest Chest: normal inspection of the chest and normal palpation of entire chest wall Resp Effort & Inspection: tachypneic Auscultation: rales bilaterally at the base Cardio Jugular venous pressure: no JVD Palpation: normal PMI Rate: regular rate Rhythm: regular rhythm Heart Sounds: S1 normal, abnormal opening sounds loud S2 and murmur systolic early, soft, II/ and at the apex Pulses: posterior tibial pulses present bilaterally 1+ and diminished and dorsalis pedis pulses present bilaterally 1+ and diminished GI Inspection: normal to inspection and obesity Palpation: soft and no hepatosplenomegaly Percussion: normal to percussion Auscultation: normal bowel sounds Back/Spine/Pelvis Back: no CVA tenderness Cervical Spine: normal cervical lordosis Thoracic/Lumbar Spine: thoracic and lumbar spine normal to inspection Skin General skin exam: no rashes or lesions noted and dry skin Lesions: no lesions Rashes: no rashes Trauma: no lacerations or abrasions Wounds: no wounds Nails: yellow and thickened Neuro General: alert, awake, oriented x3, moves all extremities and no focal motor deficits Cranial Nerves: PERRL, EOM intact bilaterally, no nystagmus, facial strength normal and able to elevate shoulders bilaterally Cognition: normal cognition Speech: speech normal Motor: muscle tone normal throughout, strength 5/5 throughout and no movement a bnormalities noted Sensory Exam: no sensory deficits noted Extrem General: normal to inspection, full ROM, normal capillary refill, no joint enlargement and no clubbing, cyanosis or edema Psych Appearance: grossly normal and well kempt Mental Status: mental status grossly normal Speech and Movement: speech and movement normal Mood: congruent mood Affect: normal affect Attitude: cooperative Thought Process: normal Thought Content: normal Insight: insight good Judgment: judgment good Results Imaging Chest x-ray: report reviewed (Findings concerning for mild/early acute interstitial and airspace disease for which the main diagnostic consideration would be that of pulmonary interstitial/airspace edema. Superimposed infectious pneumonic process should be entertained in the appropriate clinical setting. ) EKG: image reviewed (S.T. @ 120 BPM, RBBB w/ LAFB; nonspecific ST-T abnorm. I, avL, V5, V6) Labs : 02/10/19 17:45 02/10/19 17:45 Laboratory Results - last 24 hr 02/10/19 02/10/19 02/10/19 17:45 17:45 17:45 WBC RBC Hgb Hct MCV MCH MCHC RDW Plt Count MPV Immature Gran % Neutrophils % Lymphocytes % Monocytes % Eosinophils % Basophils % Absolute Neutrophils Absolute Lymphocytes Absolute Monocytes Absolute Eosinophils Absolute Basophils Sample Site pCO2 pO2 O2 Saturation ABG pH ABG HCO3 ABG Total CO2 ABG Base Excess Oxygen Liter Flow FiO2 Sodium 139 Potassium 3.9 Chloride 102 Carbon Dioxide 26.5 Anion Gap 10.5 BUN 31 H Creatinine 1.95 H Estimated GFR/1.73 m2 33.99 Glucose 72 D Lactate 1.5 H Calcium 8.4 L Magnesium 1.7 L Total Bilirubin 0.4 AST 29 ALT 36 Alkaline Phosphatase 133 H Troponin I 0.02 NT-Pro-B Natriuret Pep 3749 H Total Protein 8.4 H Albumin 3.4 Urine Color Urine Clarity Urine pH Ur Specific Jet Urine Protein Urine Ketones Urine Blood Urine Nitrite Urine Bilirubin Urine Urobilinogen Ur Leukocyte Esterase Urine Glucose 02/10/19 02/10/19 02/10/19 17:45 18:18 19:20 WBC 12.30 H RBC 3.63 L Hgb 11.5 L Hct 35.4 L MCV 97.5 H MCH 31.7 MCHC 32.5 RDW 12.3 Plt Count 193 MPV 9.8 Immature Gran % 0.3 Neutrophils % 64.5 Lymphocytes % 21.6 Monocytes % 10.4 Eosinophils % 3.0 Basophils % 0.2 Absolute Neutrophils 7.93 H Absolute Lymphocytes 2.66 Absolute Monocytes 1.28 H Absolute Eosinophils 0.37 Absolute Basophils 0.02 Sample Site Left radial pCO2 39 pO2 77 L O2 Saturation 97 ABG pH 7.38 ABG HCO3 23 ABG Total CO2 22 ABG Base Excess -1.8 Oxygen Liter Flow Bipap FiO2 28 Sodium Potassium Chloride Carbon Dioxide Anion Gap BUN Creatinine Estimated GFR/1.73 m2 Glucose Lactate Calcium Magnesium Total Bilirubin AST ALT Alkaline Phosphatase Troponin I NT-Pro-B Natriuret Pep Total Protein Albumin Urine Color Yellow Urine Clarity Clear Urine pH 5.5 Ur Specific Jet 1.010 Urine Protein Negative Urine Ketones Negative Urine Blood Negative Urine Nitrite Negative Urine Bilirubin Negative Urine Urobilinogen 0.2 Ur Leukocyte Esterase Negative Urine Glucose Negative Last Vital Signs Temp 37.5 C 02/10/19 19:35 Pulse 80 02/10/19 20:55 Resp 31 H 02/10/19 20:55 BP 155/76 H 02/10/19 20:17 Pulse Ox 96 02/10/19 20:55
[2019-02-10] MEDS: Enoxaparin 30 MG/0.3 ML SYR SC (22:16)
[2019-02-10] MEDS: Normal Saline Flush 10 ML SYR IVP (22:16)
[2019-02-10 22:32] LABS: Lactate-non-spesis 2.1 mmol/l (0.6-1.4)
[2019-02-10 22:53] LABS: Troponin I 7.44 ng/mL (0.00-0.06)
[2019-02-10] MEDS: Gabapentin 600 MG TAB PO (23:34)
[2019-02-10] MEDS: Aspirin 81 MG CHEW 324 MG CH (23:35)
[2019-02-11] VITALS (14 sets, daily range): BP systolic 129–144; BP diastolic 57–69; PULSE 58–80; RESP 16–31; TEMP 36.8; O2SAT 92–97
[2019-02-11 00:08] LABS: INR 1.1 (0.9-1.1); PTT Activated 28.5 sec (21.0-31.4)
--- NOTE | 2019-02-11 01:40 | W.PM.DS.N ---
Date of service: 02/11/19 Time of Service: 01:40 DS: Diagnosis Discharge Diagnosis (1) NSTEMI (non-ST elevated myocardial infarction): Status: Acute Asessment and Plan: continue heparin drip, ASA and Ticagrelor. Patient remained pain free and hemodynamically stable on BIPAP and remained free of acute dyspnea. further evaluation including cardiac cath will be pursued at [facility]. Patient transferred to [facility] to care of Dr. Shaquille Leonard and Dr. Joanne Rodriguez. (2) Heart failure with preserved ejection fraction: Status: Chronic Asessment and Plan: continue iv lasix; it appears now that his HFPEF is now ischemic in origin and probably HFREF. further evaluation to be done at [facility] including echo and cardiac cath. Because of his CKD he was not placed on an FAUSTO inhibitor nor an ARB (3) Acute on chronic diastolic heart failure: Status: Acute Asessment and Plan: as above (4) Community acquired pneumonia of both lungs: Status: Acute Asessment and Plan: continue oral steroids, prn bronchodilators, and ceftriaxone and oral azithromycin (5) Diabetic polyneuropathy associated with type 2 diabetes mellitus: Status: Chronic Asessment and Plan: continue meal coverage and sliding scale for correction dosing of insulin; continue his neurontin for his neuropathy (6) Chronic renal insufficiency, stage III (moderate): Status: Chronic Asessment and Plan: patient will need nephrology consult to optimize renal function in light of his need for cardiac cath. I anticipate he will have transient worsening of his renal function w/ cardiac cath. Consider mucomyst pre-procedure. (7) DVT prophylaxis: Status: Acute Asessment and Plan: enoxaparin discontinued and patient was started on systemic heparin drip for his NSTEMI Discharge Plan Disposition Patient Disposition: [facility] ([facility]) Condition: Serious Discharge Details Reason For Visit: PNEUMONIA,CHF, NSTEMI Admit Date/Time: 02/10/19 18:56 Admit Provider: Carlos A Chong Attending Provider: Carlos A Chong Primary Care Provider: Cesar Gorman [facility] Course Hospital Course: 3 yr old male w/ PMH of PATI (on BIPAP at home), HTN, DM type 2 w/ CKD, and peripheral neuropathy, HLD, who is s/p R. nephrectomy for renal cell CA presents to the ER w/ acute dyspnea and chills including rigors and nonproductive cough that began today along w/ some chest pressure that improved after oxygen. There have been no ill contacts. He is single but lives w/ his 60 yr old niece who is healthy. Upon arrival he is noted to be febrile 100.4, hypoxemic at 77% on R.A., tachypneic @ 29-35 breaths/minute, with accessory respiratory muscle use, tachycardic at 119 bpm, sinus tach., but not hypotensive (BP 156/77). Dr. Kassi Rivera evaluated and treated the patient in the ER including CXR, EKG, routine labs including CBC, CMP, troponin, BNP, UA, ABG, blood and urine cultures. CBC demonstrated stable anemia at 11.5 gm, leukocytosis of 12,300 with left shift, CMP with chronic renal insufficiency w/ BUN 31, creatnine of 1.95 (prior levels have been BUN 65 to 90 and creatinine of 2.64-2.74), normal LFT's, and normal troponin of 0.02 but elevated BNP of 3700. UA was unremarkable. Lactate was mildly elevated at 1.5. CXR demonstrated mild bilateral segmental bronchial wall thickening and faint bilateral perihilar patchy opacifications but no pleural effusions and mild cardiomegaly. EKG demonstrated sinus tachycardia@ 120 bpm w/ RBBB and LAFB and non-specific ST depression and T wave changes in lateral leads I, avL and V5,V6. Treatment in the ER included initially a fluid bolus of 250 mL NS but then he was later given furosemide 40 mg IVP. He also received albuterol aerosol treatments, BIPAP and iv solumedrol and antibiotics including Azithromycin and Ceftriaxone. He is now admitted to the ICU for treatment of CAP and CHF. Of note his chart included hx of CHF although he denies any hx of CHF, or IA. He reportedly had a cardiac evaluation preoperatively at [facility] before his nephrectomy in late 2014 or early 2015 Patient remained free of any chest pain since admission and his dyspnea improved after the lasix and the BIPAP was initiated. Patient was admitted to ICU. Follow up troponin at 22:25 was elevated at 7.44. Repeat EKG continued to demonstrate NSR at 63 bpm and nonspecific IVCD with ST-T abnormalities in I, avL but improvement in his ST depression seen earlier in V5 and V6. He has evidence of old anteroseptal infarct. Patient was given ASA 324 mg chewable and started on heparin drip. Bedside POCUS echo was performed but was poor image quality but apical 4 chamber view suggested severe LV dysfunction with apical and laterl wall hypokinesis. [facility] transfer center was contacted but I was informed that they were not accepting any transfers tonight as there was already a waiting list for transfers. I contacted the transfer center at [facility], [place], [place] and spoke w/ Dr. Joanne Rodriguez, children[facility] institution attendant and after review of the patient's case he agreed to accept the patient in transfer. The transfer center got Dr. Shaquille Leonard on the line as well as he would be accepting the tranfer tonight. Per Dr. Rodriguez's recommendation, the patient was given Ticagrelor 180 mg in addition to the ASA 324 mg. Patient remained hemodynamically stable with HR 59 SR, BP 138/60, and RR 17 and temp 36.4. Oxygen saturation was 100% on BIPAP 18/10 cm and FIO2 of 30%. Home Meds and New Rx's Prescriptions: No Action gabapentin 600 mg tablet 600 mg PO HS Qty: 90 RF: 3 multivitamin 1 EACH capsule 1 cap PO DAILY RF: 0 omega-3 fatty acids-fish oil 1 EACH capsule 1 ea PO BID RF: 0 lancets [OneTouch UltraSoft Lancets] 1 EACH misc 1 ea Intradermal DAILY Qty: 100 RF: 5 hydrocortisone 28.4 GM cream 1 guillermo Topical TID PRNQty: 3 RF: 4 aspirin [Aspir-Low] 81 MG tablet,delayed release (DR/EC) 1 tab PO DAILY RF: 0 OneTouch Ultra Test strip 1 ea Miscellaneous DAILY Qty: 100 RF: 4 furosemide 40 mg tablet 40 mg PO DAILY Qty: 90 RF: 3 ergocalciferol (vitamin D2) [Vitamin D2] 50,000 unit capsule 50,000 unit PO Monthly Qty: 12 RF: 4 pravastatin [Pravachol] 20 mg tablet 20 mg PO DAILY Qty: 90 RF: 4 Vesicare 5 mg tablet 5 mg PO DAILY Qty: 90 RF: 4 tamsulosin 0.4 mg capsule 0.4 mg PO DAILY Qty: 90 RF: 4 glipizide 5 mg tablet 5 mg PO DAILY Qty: 90 RF: 4 sodium polystyrene sulfonate 15 gram/60 mL suspension 60 ml PO DAILY Qty: 600 RF: 1 acetaminophen [Tylenol] 325 MG tablet 1 tab PO Q4H PRN PRN (Reason: joint pains or headache) Qty: 60 RF: 0 alum-mag hydroxide-simeth [Mag-Al Plus] 30 ML suspension 30 ml PO Q2H PRN PRNRF: 0 nystatin 60 GM powder 1 gm Topical BID RF: 0 Probiotic 1 EACH capsule 1 cap PO DAILY RF: 0 Discharge Instructions Instructions: Myocardial Infarction (DC), Heart Failure (DC) Additional Instructions: your home medications will be reconciled upon discharge from [facility] Referrals: JOANNE RODRIGUEZ [ NON-[facility] STAFF PHYSICIAN] - None Discharge Orders Discharge Orders: Discharge Order (Routine); Ordered 02/11/19 Ordered By: Carlos A Chong DS: Summary Time Spent with Patient Greater than 30 minutes DS: Data Vitals/I&O Vitals and I&O: Vital Signs Temperature 36.8 C 02/10/19 21:26 Temperature Source Temporal Artery Scan 02/10/19 21:26 Pulse 66 02/11/19 01:01 Pulse 64 02/11/19 01:01 Respiratory Rate 16 02/11/19 01:01 Respiratory Effort 02/10/19 21:26 Respiratory Depth Shallow 02/10/19 17:55 Respiratory Pattern Normal 02/10/19 21:26 Blood Pressure 135/61 02/11/19 01:01 Blood Pressure Mean 80 02/11/19 01:01 Pulse Oximetry 97 02/11/19 01:01 Oxygen Delivery Method Bi-pap 02/10/19 21:26 Oxygen Flow Rate 0 02/10/19 17:46 Fraction of Inspired Oxygen (FIO2) 30 02/10/19 21:26 Pain Level 0 02/10/19 17:32 Intake & Output 02/10/19 02/10/19 02/11/19 11:59 23:59 11:59 Intake Total 570 / 570 Output Total 425 / 425 Balance 145 / 145 Weight 122.6 kg Intake: IV 570 / 570 Output: Urine 425 / 425 Other: Urine Color Pale Urine Appearance Clear Urine Odor None Voiding Methods Urinal Labs on day of discharge: Labs from last 24 hours 02/11/19 02/11/19 02/11/19 01:15 01:15 01:15 WBC Pending RBC Pending Hgb Pending Hct Pending MCV Pending MCH Pending MCHC Pending RDW Pending Plt Count Pending MPV Pending Immature Gran % Pending Neutrophils % Pending Lymphocytes % Pending Monocytes % Pending Eosinophils % Pending Basophils % Pending Absolute Neutrophils Pending Absolute Lymphocytes Pending Absolute Monocytes Pending Absolute Eosinophils Pending Absolute Basophils Pending PT INR APTT Sample Site pCO2 pO2 O2 Saturation ABG pH ABG HCO3 ABG Total CO2 ABG Base Excess Oxygen Liter Flow FiO2 Sodium Pending Potassium Pending Chloride Pending Carbon Dioxide Pending Anion Gap Pending BUN Pending Creatinine Pending Estimated GFR/1.73 m2 Pending Glucose Pending Hemoglobin A1c Lactate Calcium Pending Magnesium Total Bilirubin Pending AST Pending ALT Pending Alkaline Phosphatase Pending Troponin I NT-Pro-B Natriuret Pep Pending Total Protein Pending Albumin Pending Triglycerides Pending Total Cholesterol Pending LDL Cholesterol Direct Pending HDL Cholesterol Pending TSH Pending Urine Color Urine Clarity Urine pH Ur Specific [place] Urine Protein Urine Ketones Urine Blood Urine Nitrite Urine Bilirubin Urine Urobilinogen Ur Leukocyte Esterase Urine Glucose Legionella Source Legionella Reprt Status Legionella Final Result M. pneumoniae Source M. pneumoniae (PCR) Ur Strep pneumoniae Ag 02/11/19 02/11/19 02/11/19 01:15 01:15 01:15 WBC RBC Hgb Hct MCV MCH MCHC RDW Plt Count MPV Immature Gran % Neutrophils % Lymphocytes % Monocytes % Eosinophils % Basophils % Absolute Neutrophils Absolute Lymphocytes Absolute Monocytes Absolute Eosinophils Absolute Basophils PT INR APTT Sample Site pCO2 pO2 O2 Saturation ABG pH ABG HCO3 ABG Total CO2 ABG Base Excess Oxygen Liter Flow FiO2 Sodium Potassium Chloride Carbon Dioxide Anion Gap BUN Creatinine Estimated GFR/1.73 m2 Glucose Hemoglobin A1c Pending Lactate Pending Calcium Magnesium Total Bilirubin AST ALT Alkaline Phosphatase Troponin I Pending NT-Pro-B Natriuret Pep Total Protein Albumin Triglycerides Total Cholesterol LDL Cholesterol Direct HDL Cholesterol TSH Urine Color Urine Clarity Urine pH Ur Specific [place] Urine Protein Urine Ketones Urine Blood Urine Nitrite Urine Bilirubin Urine Urobilinogen Ur Leukocyte Esterase Urine Glucose Legionella Source Legionella Reprt Status Legionella Final Result M. pneumoniae Source M. pneumoniae (PCR) Ur Strep pneumoniae Ag 02/10/19 02/10/19 02/10/19 23:44 22:25 22:25 WBC RBC Hgb Hct MCV MCH MCHC RDW Plt Count MPV Immature Gran % Neutrophils % Lymphocytes % Monocytes % Eosinophils % Basophils % Absolute Neutrophils Absolute Lymphocytes Absolute Monocytes Absolute Eosinophils Absolute Basophils PT 11.0 INR 1.1 APTT 28.5 Sample Site pCO2 pO2 O2 Saturation ABG pH ABG HCO3 ABG Total CO2 ABG Base Excess Oxygen Liter Flow FiO2 Sodium Potassium Chloride Carbon Dioxide Anion Gap BUN Creatinine Estimated GFR/1.73 m2 Glucose Hemoglobin A1c Lactate 2.1 H Calcium Magnesium Total Bilirubin AST ALT Alkaline Phosphatase Troponin I 7.44 H* NT-Pro-B Natriuret Pep Total Protein Albumin Triglycerides Total Cholesterol LDL Cholesterol Direct HDL Cholesterol TSH Urine Color Urine Clarity Urine pH Ur Specific [place] Urine Protein Urine Ketones Urine Blood Urine Nitrite Urine Bilirubin Urine Urobilinogen Ur Leukocyte Esterase Urine Glucose Legionella Source Legionella Reprt Status Legionella Final Result M. pneumoniae Source M. pneumoniae (PCR) Ur Strep pneumoniae Ag 02/10/19 02/10/19 02/10/19 22:10 22:10 22:09 WBC RBC Hgb Hct MCV MCH MCHC RDW Plt Count MPV Immature Gran % Neutrophils % Lymphocytes % Monocytes % Eosinophils % Basophils % Absolute Neutrophils Absolute Lymphocytes Absolute Monocytes Absolute Eosinophils Absolute Basophils PT INR APTT Sample Site pCO2 pO2 O2 Saturation ABG pH ABG HCO3 ABG Total CO2 ABG Base Excess Oxygen Liter Flow FiO2 Sodium Potassium Chloride Carbon Dioxide Anion Gap BUN Creatinine Estimated GFR/1.73 m2 Glucose Hemoglobin A1c Lactate Calcium Magnesium Total Bilirubin AST ALT Alkaline Phosphatase Troponin I NT-Pro-B Natriuret Pep Total Protein Albumin Triglycerides Total Cholesterol LDL Cholesterol Direct HDL Cholesterol TSH Urine Color Urine Clarity Urine pH Ur Specific [place] Urine Protein Urine Ketones Urine Blood Urine Nitrite Urine Bilirubin Urine Urobilinogen Ur Leukocyte Esterase Urine Glucose Legionella Source Pending Legionella Reprt Status Pending Legionella Final Result Pending M. pneumoniae Source Pending M. pneumoniae (PCR) Pending Ur Strep pneumoniae Ag Pending 02/10/19 02/10/19 02/10/19 19:20 18:18 17:45 WBC 12.30 H RBC 3.63 L Hgb 11.5 L Hct 35.4 L MCV 97.5 H MCH 31.7 MCHC 32.5 RDW 12.3 Plt Count 193 MPV 9.8 Immature Gran % 0.3 Neutrophils % 64.5 Lymphocytes % 21.6 Monocytes % 10.4 Eosinophils % 3.0 Basophils % 0.2 Absolute Neutrophils 7.93 H Absolute Lymphocytes 2.66 Absolute Monocytes 1.28 H Absolute Eosinophils 0.37 Absolute Basophils 0.02 PT INR APTT Sample Site Left radial pCO2 39 pO2 77 L O2 Saturation 97 ABG pH 7.38 ABG HCO3 23 ABG Total CO2 22 ABG Base Excess -1.8 Oxygen Liter Flow Bipap FiO2 28 Sodium Potassium Chloride Carbon Dioxide Anion Gap BUN Creatinine Estimated GFR/1.73 m2 Glucose Hemoglobin A1c Lactate Calcium Magnesium Total Bilirubin AST ALT Alkaline Phosphatase Troponin I NT-Pro-B Natriuret Pep Total Protein Albumin Triglycerides Total Cholesterol LDL Cholesterol Direct HDL Cholesterol TSH Urine Color Yellow Urine Clarity Clear Urine pH 5.5 Ur Specific [place] 1.010 Urine Protein Negative Urine Ketones Negative Urine Blood Negative Urine Nitrite Negative Urine Bilirubin Negative Urine Urobilinogen 0.2 Ur Leukocyte Esterase Negative Urine Glucose Negative Legionella Source Legionella Reprt Status Legionella Final Result M. pneumoniae Source M. pneumoniae (PCR) Ur Strep pneumoniae Ag 02/10/19 02/10/19 02/10/19 17:45 17:45 17:45 WBC RBC Hgb Hct MCV MCH MCHC RDW Plt Count MPV Immature Gran % Neutrophils % Lymphocytes % Monocytes % Eosinophils % Basophils % Absolute Neutrophils Absolute Lymphocytes Absolute Monocytes Absolute Eosinophils Absolute Basophils PT INR APTT Sample Site pCO2 pO2 O2 Saturation ABG pH ABG HCO3 ABG Total CO2 ABG Base Excess Oxygen Liter Flow FiO2 Sodium 139 Potassium 3.9 Chloride 102 Carbon Dioxide 26.5 Anion Gap 10.5 BUN 31 H Creatinine 1.95 H Estimated GFR/1.73 m2 33.99 Glucose 72 D Hemoglobin A1c Lactate 1.5 H Calcium 8.4 L Magnesium 1.7 L Total Bilirubin 0.4 AST 29 ALT 36 Alkaline Phosphatase 133 H Troponin I 0.02 NT-Pro-B Natriuret Pep 3749 H Total Protein 8.4 H Albumin 3.4 Triglycerides Total Cholesterol LDL Cholesterol Direct HDL Cholesterol TSH Urine Color Urine Clarity Urine pH Ur Specific [place] Urine Protein Urine Ketones Urine Blood Urine Nitrite Urine Bilirubin Urine Urobilinogen Ur Leukocyte Esterase Urine Glucose Legionella Source Legionella Reprt Status Legionella Final Result M. pneumoniae Source M. pneumoniae (PCR) Ur Strep pneumoniae Ag 02/10/19 19:03 Blood Blood Culture - Pending 02/10/19 18:55 Blood Blood Culture - Pending Preliminary micro results at discharge 02/10/19 19:03 Blood Culture - Pending Blood 02/10/19 18:55 Blood Culture - Pending Blood [facility] Medical History Heart failure with preserved ejection fraction (Chronic 08/22/15) Tubular adenoma of colon (Resolved 03/20/17) Primary osteoarthritis of left knee (Chronic 07/01/18) Osteoarthritis (Chronic) Obesity (Chronic) Mild nonproliferative diabetic retinopathy (Chronic) Kidney calculus (Chronic 10/08/03) Joint pain (Chronic) Hyperkalemia (Chronic 07/01/18) Hypercholesterolemia (Chronic) Essential hypertension (Chronic 07/24/15) Edema (Chronic) Disorder characterized by back pain (Chronic) Diabetic polyneuropathy associated with type 2 diabetes mellitus (Chronic 07/24/15) Diabetes mellitus (Chronic 07/20/13) Common bile duct calculi (Resolved 09/18/17) 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) Chronic renal insufficiency, stage III (moderate) (Chronic 04/08/18) Morbid obesity (Chronic) Cholelithiasis (Chronic) Type II diabetes mellitus (Chronic) Chronic low back pain (Chronic) Hyperlipidemia (Chronic) History of nephrolithiasis (Chronic) Osteoarthrosis (Chronic) Chronic venous insufficiency (Chronic) Obstructive sleep apnea (Chronic) Chronic kidney insufficiency (Chronic) Congestive heart failure (Chronic) Urgency incontinence (Chronic) Diabetes (Chronic) HTN (hypertension) (Chronic) Obstructive sleep apnea (Chronic) Cholelithiasis without obstruction (Resolved) Surgical History History of nephrectomy (Acute) Hx of cholecystectomy (Chronic) Colonoscopy - MAC (03/20/17) Kidney Surgery Family History Mother Essential hypertension Father Essential hypertension Sister Essential hypertension Heart disease Brother Diabetes Grandmother Personal history of malignant neoplasm Social History Smoking/Tobacco Use Status: Former Tobacco Use Tobacco: How many years used: 6 Alcohol Intake: never Drug use: Never Substance use type: does not use Household members: family and other Details: niece Housing: apartment current occupation: retired yard warehouse worker at [employer]; formerly lived [place], [place] Do you feel safe at home: Yes Do you feel safe in your relationship?: Yes
[2019-02-11 01:44] LABS: Lactate-non-spesis 1.5 mmol/l (0.6-1.4)
[2019-02-11 01:47] LABS: Abs Immature Grans 0.04 k/cumm (0.0-0.09); Absolute Basophil Count 0.01 k/cumm (0.0-0.2); Absolute Monocyte Count 0.17 k/cumm (0.11-0.7); Absolute Neutrophil Count 12.42 k/cumm (1.2-6.7); Basophils % 0.1; HCT 31.6 % (40.0-50.0); HGB 10.4 g/dL (13.5-17.5); Immature Grans % 0.3; Lymphocytes % 3.8; Mean Corp. HGB Concentration 32.9 g/dL (32.0-36.0); Mean Corpuscular Hemoglobin 31.9 pg (27.0-33.0); Mean Corpuscular Volume 96.9 fL (80-95); Mean Platelet Volume 9.8 fL (8.0-11.0); Monocytes % 1.3; Neutrophils % 94.5; Platelet Count 164 x1000/uL (130-400); RBC 3.26 m/cumm (4.50-6.00); RBC Distribution Width 12.1 % (11.8-14.1); White Blood Cell Count 13.14 k/cumm (4.4-10.8)
--- NOTE | 2019-02-11 01:49 | DSE_ITS ---
Date of service: 02/11/19 Time of Service: 01:40 DS: Diagnosis Discharge Diagnosis (1) NSTEMI (non-ST elevated myocardial infarction): Status: Acute Asessment and Plan: continue heparin drip, ASA and Ticagrelor. Patient remained pain free and hemodynamically stable on BIPAP and remained free of acute dyspnea. further evaluation including cardiac cath will be pursued at [facility]. Patient transferred to [facility] to care of Dr. Shaquille Leonard and Dr. Joanne Rodriguez. (2) Heart failure with preserved ejection fraction: Status: Chronic Asessment and Plan: continue iv lasix; it appears now that his HFPEF is now ischemic in origin and probably HFREF. further evaluation to be done at [facility] including echo and cardiac cath. Because of his CKD he was not placed on an FAUSTO inhibitor nor an ARB (3) Acute on chronic diastolic heart failure: Status: Acute Asessment and Plan: as above (4) Community acquired pneumonia of both lungs: Status: Acute Asessment and Plan: continue oral steroids, prn bronchodilators, and ceftriaxone and oral azithromycin (5) Diabetic polyneuropathy associated with type 2 diabetes mellitus: Status: Chronic Asessment and Plan: continue meal coverage and sliding scale for correction dosing of insulin; continue his neurontin for his neuropathy (6) Chronic renal insufficiency, stage III (moderate): Status: Chronic Asessment and Plan: patient will need nephrology consult to optimize renal function in light of his need for cardiac cath. I anticipate he will have transient worsening of his renal function w/ cardiac cath. Consider mucomyst pre-procedure. (7) DVT prophylaxis: Status: Acute Asessment and Plan: enoxaparin discontinued and patient was started on systemic heparin drip for his NSTEMI Discharge Plan Disposition Patient Disposition: [facility] ([facility]) Condition: Serious Discharge Details Reason For Visit: PNEUMONIA,CHF, NSTEMI Admit Date/Time: 02/10/19 18:56 Admit Provider: Carlos A Chong Attending Provider: Carlos A Chong Primary Care Provider: Cesar Gorman [facility] Course Hospital Course: 3 yr old male w/ PMH of PATI (on BIPAP at home), HTN, DM type 2 w/ CKD, and peripheral neuropathy, HLD, who is s/p R. nephrectomy for renal cell CA presents to the ER w/ acute dyspnea and chills including rigors and nonproductive cough that began today along w/ some chest pressure that improved after oxygen. There have been no ill contacts. He is single but lives w/ his 60 yr old niece who is healthy. Upon arrival he is noted to be febrile 100.4, hypoxemic at 77% on R.A., tachypneic @ 29-35 breaths/minute, with accessory respiratory muscle use, tachycardic at 119 bpm, sinus tach., but not hypotensive (BP 156/77). Dr. Kassi Rivera evaluated and treated the patient in the ER including CXR, EKG, routine labs including CBC, CMP, troponin, BNP, UA, ABG, blood and urine cultures. CBC demonstrated stable anemia at 11.5 gm, leukocytosis of 12,300 with left shift, CMP with chronic renal insufficiency w/ BUN 31, creatnine of 1.95 (prior levels have been BUN 65 to 90 and creatinine of 2.64-2.74), normal LFT's, and normal troponin of 0.02 but elevated BNP of 3700. UA was unremarkable. Lactate was mildly elevated at 1.5. CXR demonstrated mild bilateral segmental bronchial wall thickening and faint bilateral perihilar patchy opacifications but no pleural effusions and mild cardiomegaly. EKG demonstrated sinus tachycardia@ 120 bpm w/ RBBB and LAFB and non-specific ST depression and T wave changes in lateral leads I, avL and V5,V6. Treatment in the ER included initially a fluid bolus of 250 mL NS but then he was later given furosemide 40 mg IVP. He also received albuterol aerosol treatments, BIPAP and iv solumedrol and antibiotics including Azithromycin and Ceftriaxone. He is now admitted to the ICU for treatment of CAP and CHF. Of note his chart included hx of CHF although he denies any hx of CHF, or [place]. He reportedly had a cardiac evaluation preoperatively at [facility] before his nephrectomy in late 2014 or early 2015 Patient remained free of any chest pain since admission and his dyspnea improved after the lasix and the BIPAP was initiated. Patient was admitted to ICU. Follow up troponin at 22:25 was elevated at 7.44. Repeat EKG continued to demonstrate NSR at 63 bpm and nonspecific IVCD with ST-T abnormalities in I, avL but improvement in his ST depression seen earlier in V5 and V6. He has evidence of old anteroseptal infarct. Patient was given ASA 324 mg chewable and started on heparin drip. Bedside POCUS echo was performed but was poor image quality but apical 4 chamber view suggested severe LV dysfunction with apical and laterl wall hypokinesis. [facility] transfer center was contacted but I was informed that they were not accepting any transfers tonight as there was already a waiting list for transfers. I contacted the transfer center at [facility], [place], [place] and spoke w/ Dr. Joanne Rodriguez, diabetes physician and after review of the patient's case he agreed to accept the patient in transfer. The transfer center got Dr. Shaquille Leonard on the line as well as he would be accepting the tranfer tonight. Per Dr. Rodriguez's recommendation, the patient was given Ticagrelor 180 mg in addition to the ASA 324 mg. Patient remained hemodynamically stable with HR 59 SR, BP 138/60, and RR 17 and temp 36.4. Oxygen saturation was 100% on BIPAP 18/10 cm and FIO2 of 30%. Home Meds and New Rx's Prescriptions: No Action gabapentin 600 mg tablet 600 mg PO HS Qty: 90 RF: 3 multivitamin 1 EACH capsule 1 cap PO DAILY RF: 0 omega-3 fatty acids-fish oil 1 EACH capsule 1 ea PO BID RF: 0 lancets [OneTouch UltraSoft Lancets] 1 EACH misc 1 ea Intradermal DAILY Qty: 100 RF: 5 hydrocortisone 28.4 GM cream 1 guillermo Topical TID PRNQty: 3 RF: 4 aspirin [Aspir-Low] 81 MG tablet,delayed release (DR/EC) 1 tab PO DAILY RF: 0 OneTouch Ultra Test strip 1 ea Miscellaneous DAILY Qty: 100 RF: 4 furosemide 40 mg tablet 40 mg PO DAILY Qty: 90 RF: 3 ergocalciferol (vitamin D2) [Vitamin D2] 50,000 unit capsule 50,000 unit PO Monthly Qty: 12 RF: 4 pravastatin [Pravachol] 20 mg tablet 20 mg PO DAILY Qty: 90 RF: 4 Vesicare 5 mg tablet 5 mg PO DAILY Qty: 90 RF: 4 tamsulosin 0.4 mg capsule 0.4 mg PO DAILY Qty: 90 RF: 4 glipizide 5 mg tablet 5 mg PO DAILY Qty: 90 RF: 4 sodium polystyrene sulfonate 15 gram/60 mL suspension 60 ml PO DAILY Qty: 600 RF: 1 acetaminophen [Tylenol] 325 MG tablet 1 tab PO Q4H PRN PRN (Reason: joint pains or headache) Qty: 60 RF: 0 alum-mag hydroxide-simeth [Mag-Al Plus] 30 ML suspension 30 ml PO Q2H PRN PRNRF: 0 nystatin 60 GM powder 1 gm Topical BID RF: 0 Probiotic 1 EACH capsule 1 cap PO DAILY RF: 0 Discharge Instructions Instructions: Myocardial Infarction (DC), Heart Failure (DC) Additional Instructions: your home medications will be reconciled upon discharge from [facility] Referrals: JOANNE RODRIGUEZ [ NON-[facility] STAFF PHYSICIAN] - None Discharge Orders Discharge Orders: Discharge Order (Routine); Ordered 02/11/19 Ordered By: Carlos A Chong DS: Summary Time Spent with Patient Greater than 30 minutes DS: Data Vitals/I&O Vitals and I&O: Vital Signs Temperature 36.8 C 02/10/19 21:26 Temperature Source Temporal Artery Scan 02/10/19 21:26 Pulse 66 02/11/19 01:01 Pulse 64 02/11/19 01:01 Respiratory Rate 16 02/11/19 01:01 Respiratory Effort 02/10/19 21:26 Respiratory Depth Shallow 02/10/19 17:55 Respiratory Pattern Normal 02/10/19 21:26 Blood Pressure 135/61 02/11/19 01:01 Blood Pressure Mean 80 02/11/19 01:01 Pulse Oximetry 97 02/11/19 01:01 Oxygen Delivery Method Bi-pap 02/10/19 21:26 Oxygen Flow Rate 0 02/10/19 17:46 Fraction of Inspired Oxygen (FIO2) 30 02/10/19 21:26 Pain Level 0 02/10/19 17:32 Intake & Output 02/10/19 02/10/19 02/11/19 11:59 23:59 11:59 Intake Total 570 / 570 Output Total 425 / 425 Balance 145 / 145 Weight 122.6 kg Intake: IV 570 / 570 Output: Urine 425 / 425 Other: Urine Color Pale Urine Appearance Clear Urine Odor None Voiding Methods Urinal Labs on day of discharge: Labs from last 24 hours 02/11/19 02/11/19 02/11/19 01:15 01:15 01:15 WBC Pending RBC Pending Hgb Pending Hct Pending MCV Pending MCH Pending MCHC Pending RDW Pending Plt Count Pending MPV Pending Immature Gran % Pending Neutrophils % Pending Lymphocytes % Pending Monocytes % Pending Eosinophils % Pending Basophils % Pending Absolute Neutrophils Pending Absolute Lymphocytes Pending Absolute Monocytes Pending Absolute Eosinophils Pending Absolute Basophils Pending PT INR APTT Sample Site pCO2 pO2 O2 Saturation ABG pH ABG HCO3 ABG Total CO2 ABG Base Excess Oxygen Liter Flow FiO2 Sodium Pending Potassium Pending Chloride Pending Carbon Dioxide Pending Anion Gap Pending BUN Pending Creatinine Pending Estimated GFR/1.73 m2 Pending Glucose Pending Hemoglobin A1c Lactate Calcium Pending Magnesium Total Bilirubin Pending AST Pending ALT Pending Alkaline Phosphatase Pending Troponin I NT-Pro-B Natriuret Pep Pending Total Protein Pending Albumin Pending Triglycerides Pending Total Cholesterol Pending LDL Cholesterol Direct Pending HDL Cholesterol Pending TSH Pending Urine Color Urine Clarity Urine pH Ur Specific [place] Urine Protein Urine Ketones Urine Blood Urine Nitrite Urine Bilirubin Urine Urobilinogen Ur Leukocyte Esterase Urine Glucose Legionella Source Legionella Reprt Status Legionella Final Result M. pneumoniae Source M. pneumoniae (PCR) Ur Strep pneumoniae Ag 02/11/19 02/11/19 02/11/19 01:15 01:15 01:15 WBC RBC Hgb Hct MCV MCH MCHC RDW Plt Count MPV Immature Gran % Neutrophils % Lymphocytes % Monocytes % Eosinophils % Basophils % Absolute Neutrophils Absolute Lymphocytes Absolute Monocytes Absolute Eosinophils Absolute Basophils PT INR APTT Sample Site pCO2 pO2 O2 Saturation ABG pH ABG HCO3 ABG Total CO2 ABG Base Excess Oxygen Liter Flow FiO2 Sodium Potassium Chloride Carbon Dioxide Anion Gap BUN Creatinine Estimated GFR/1.73 m2 Glucose Hemoglobin A1c Pending Lactate Pending Calcium Magnesium Total Bilirubin AST ALT Alkaline Phosphatase Troponin I Pending NT-Pro-B Natriuret Pep Total Protein Albumin Triglycerides Total Cholesterol LDL Cholesterol Direct HDL Cholesterol TSH Urine Color Urine Clarity Urine pH Ur Specific [place] Urine Protein Urine Ketones Urine Blood Urine Nitrite Urine Bilirubin Urine Urobilinogen Ur Leukocyte Esterase Urine Glucose Legionella Source Legionella Reprt Status Legionella Final Result M. pneumoniae Source M. pneumoniae (PCR) Ur Strep pneumoniae Ag 02/10/19 02/10/19 02/10/19 23:44 22:25 22:25 WBC RBC Hgb Hct MCV MCH MCHC RDW Plt Count MPV Immature Gran % Neutrophils % Lymphocytes % Monocytes % Eosinophils % Basophils % Absolute Neutrophils Absolute Lymphocytes Absolute Monocytes Absolute Eosinophils Absolute Basophils PT 11.0 INR 1.1 APTT 28.5 Sample Site pCO2 pO2 O2 Saturation ABG pH ABG HCO3 ABG Total CO2 ABG Base Excess Oxygen Liter Flow FiO2 Sodium Potassium Chloride Carbon Dioxide Anion Gap BUN Creatinine Estimated GFR/1.73 m2 Glucose Hemoglobin A1c Lactate 2.1 H Calcium Magnesium Total Bilirubin AST ALT Alkaline Phosphatase Troponin I 7.44 H* NT-Pro-B Natriuret Pep Total Protein Albumin Triglycerides Total Cholesterol LDL Cholesterol Direct HDL Cholesterol TSH Urine Color Urine Clarity Urine pH Ur Specific [place] Urine Protein Urine Ketones Urine Blood Urine Nitrite Urine Bilirubin Urine Urobilinogen Ur Leukocyte Esterase Urine Glucose Legionella Source Legionella Reprt Status Legionella Final Result M. pneumoniae Source M. pneumoniae (PCR) Ur Strep pneumoniae Ag 02/10/19 02/10/19 02/10/19 22:10 22:10 22:09 WBC RBC Hgb Hct MCV MCH MCHC RDW Plt Count MPV Immature Gran % Neutrophils % Lymphocytes % Monocytes % Eosinophils % Basophils % Absolute Neutrophils Absolute Lymphocytes Absolute Monocytes Absolute Eosinophils Absolute Basophils PT INR APTT Sample Site pCO2 pO2 O2 Saturation ABG pH ABG HCO3 ABG Total CO2 ABG Base Excess Oxygen Liter Flow FiO2 Sodium Potassium Chloride Carbon Dioxide Anion Gap BUN Creatinine Estimated GFR/1.73 m2 Glucose Hemoglobin A1c Lactate Calcium Magnesium Total Bilirubin AST ALT Alkaline Phosphatase Troponin I NT-Pro-B Natriuret Pep Total Protein Albumin Triglycerides Total Cholesterol LDL Cholesterol Direct HDL Cholesterol TSH Urine Color Urine Clarity Urine pH Ur Specific [place] Urine Protein Urine Ketones Urine Blood Urine Nitrite Urine Bilirubin Urine Urobilinogen Ur Leukocyte Esterase Urine Glucose Legionella Source Pending Legionella Reprt Status Pending Legionella Final Result Pending M. pneumoniae Source Pending M. pneumoniae (PCR) Pending Ur Strep pneumoniae Ag Pending 02/10/19 02/10/19 02/10/19 19:20 18:18 17:45 WBC 12.30 H RBC 3.63 L Hgb 11.5 L Hct 35.4 L MCV 97.5 H MCH 31.7 MCHC 32.5 RDW 12.3 Plt Count 193 MPV 9.8 Immature Gran % 0.3 Neutrophils % 64.5 Lymphocytes % 21.6 Monocytes % 10.4 Eosinophils % 3.0 Basophils % 0.2 Absolute Neutrophils 7.93 H Absolute Lymphocytes 2.66 Absolute Monocytes 1.28 H Absolute Eosinophils 0.37 Absolute Basophils 0.02 PT INR APTT Sample Site Left radial pCO2 39 pO2 77 L O2 Saturation 97 ABG pH 7.38 ABG HCO3 23 ABG Total CO2 22 ABG Base Excess -1.8 Oxygen Liter Flow Bipap FiO2 28 Sodium Potassium Chloride Carbon Dioxide Anion Gap BUN Creatinine Estimated GFR/1.73 m2 Glucose Hemoglobin A1c Lactate Calcium Magnesium Total Bilirubin AST ALT Alkaline Phosphatase Troponin I NT-Pro-B Natriuret Pep Total Protein Albumin Triglycerides Total Cholesterol LDL Cholesterol Direct HDL Cholesterol TSH Urine Color Yellow Urine Clarity Clear Urine pH 5.5 Ur Specific [place] 1.010 Urine Protein Negative Urine Ketones Negative Urine Blood Negative Urine Nitrite Negative Urine Bilirubin Negative Urine Urobilinogen 0.2 Ur Leukocyte Esterase Negative Urine Glucose Negative Legionella Source Legionella Reprt Status Legionella Final Result M. pneumoniae Source M. pneumoniae (PCR) Ur Strep pneumoniae Ag 02/10/19 02/10/19 02/10/19 17:45 17:45 17:45 WBC RBC Hgb Hct MCV MCH MCHC RDW Plt Count MPV Immature Gran % Neutrophils % Lymphocytes % Monocytes % Eosinophils % Basophils % Absolute Neutrophils Absolute Lymphocytes Absolute Monocytes Absolute Eosinophils Absolute Basophils PT INR APTT Sample Site pCO2 pO2 O2 Saturation ABG pH ABG HCO3 ABG Total CO2 ABG Base Excess Oxygen Liter Flow FiO2 Sodium 139 Potassium 3.9 Chloride 102 Carbon Dioxide 26.5 Anion Gap 10.5 BUN 31 H Creatinine 1.95 H Estimated GFR/1.73 m2 33.99 Glucose 72 D Hemoglobin A1c Lactate 1.5 H Calcium 8.4 L Magnesium 1.7 L Total Bilirubin 0.4 AST 29 ALT 36 Alkaline Phosphatase 133 H Troponin I 0.02 NT-Pro-B Natriuret Pep 3749 H Total Protein 8.4 H Albumin 3.4 Triglycerides Total Cholesterol LDL Cholesterol Direct HDL Cholesterol TSH Urine Color Urine Clarity Urine pH Ur Specific [place] Urine Protein Urine Ketones Urine Blood Urine Nitrite Urine Bilirubin Urine Urobilinogen Ur Leukocyte Esterase Urine Glucose Legionella Source Legionella Reprt Status Legionella Final Result M. pneumoniae Source M. pneumoniae (PCR) Ur Strep pneumoniae Ag 02/10/19 19:03 Blood Blood Culture - Pending 02/10/19 18:55 Blood Blood Culture - Pending Preliminary micro results at discharge 02/10/19 19:03 Blood Culture - Pending Blood 02/10/19 18:55 Blood Culture - Pending Blood [facility] Medical History Heart failure with preserved ejection fraction (Chronic 08/22/15) Tubular adenoma of colon (Resolved 03/20/17) Primary osteoarthritis of left knee (Chronic 07/01/18) Osteoarthritis (Chronic) Obesity (Chronic) Mild nonproliferative diabetic retinopathy (Chronic) Kidney calculus (Chronic 10/08/03) Joint pain (Chronic) Hyperkalemia (Chronic 07/01/18) Hypercholesterolemia (Chronic) Essential hypertension (Chronic 07/24/15) Edema (Chronic) Disorder characterized by back pain (Chronic) Diabetic polyneuropathy associated with type 2 diabetes mellitus (Chronic 07/24/15) Diabetes mellitus (Chronic 07/20/13) Common bile duct calculi (Resolved 09/18/17) 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) Chronic renal insufficiency, stage III (moderate) (Chronic 04/08/18) Morbid obesity (Chronic) Cholelithiasis (Chronic) Type II diabetes mellitus (Chronic) Chronic low back pain (Chronic) Hyperlipidemia (Chronic) History of nephrolithiasis (Chronic) Osteoarthrosis (Chronic) Chronic venous insufficiency (Chronic) Obstructive sleep apnea (Chronic) Chronic kidney insufficiency (Chronic) Congestive heart failure (Chronic) Urgency incontinence (Chronic) Diabetes (Chronic) HTN (hypertension) (Chronic) Obstructive sleep apnea (Chronic) Cholelithiasis without obstruction (Resolved) Surgical History History of nephrectomy (Acute) Hx of cholecystectomy (Chronic) Colonoscopy - MAC (03/20/17) Kidney Surgery Family History Mother Essential hypertension Father Essential hypertension Sister Essential hypertension Heart disease Brother Diabetes Grandmother Personal history of malignant neoplasm Social History Smoking/Tobacco Use Status: Former Tobacco Use Tobacco: How many years used: 6 Alcohol Intake: never Drug use: Never Substance use type: does not use Household members: family and other Details: niece Housing: apartment 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
[2019-02-11 02:02] LABS: Hemoglobin A1C 5.2 % (4.5-6.2)
[2019-02-11 02:04] LABS: Troponin I 14.63 ng/mL (0.00-0.06)
[2019-02-11 02:15] LABS: NT-proBNP 7355 pg/mL; TSH 0.84 uIU/mL (0.358-3.74)
[2019-02-11 02:26] LABS: ALT 38 U/L (12-78); AST 58 U/L (15-37); Albumin 2.8 g/dL (3.4-5.0); Alkaline Phosphatase 108 U/L (46-116); BUN 33 mg/dL (7-18); Bilirubin, Total 0.4 mg/dL (0.2-1.0); CREATININE 2.17 mg/dL (0.70-1.30); Calcium 8.1 mg/dL (8.5-10.1); Chloride 103 mmol/L (98-107); Estimated GFR 30.04 (mL/min/1.73m2); Glucose 217 mg/dL (70-100); Potassium 4.5 mmol/L (3.5-5.1); Sodium 139 mmol/L (136-145); Total Protein 7.4 g/dL (6.4-8.2)
[2019-02-11 02:42] LABS: Cholesterol 127 mg/dL (50-200); HDL Cholesterol 41 mg/dL (40-60); LDL CHOLESTEROL 78 mg/dL (<100); Triglyceride < 25 mg/dL (30-150)
== END 2019-02-11 01:35 | disposition short-term general hospital (02) | DRG 280 ==
LOC: ER 19:18 → ICU 21:24
PROVIDERS: Admitting Provider Internal Medicine; Emergency Provider Physician Assistant; PCP Family Medicine; Visit Provider Internal Medicine
DX: I21.4 Non-ST elevation (NSTEMI) myocardial infarction (principal); I50.33 Acute on chronic diastolic (congestive) heart failure; J18.9 Pneumonia, unspecified organism; I13.0 Hypertensive heart and chronic kidney disease with heart failure and stage 1 through stage 4 chronic kidney disease, or unspecified chronic kidney disease; Z68.41 Body mass index [BMI] 40.0-44.9, adult; R09.02 Hypoxemia; E11.22 Type 2 diabetes mellitus with diabetic chronic kidney disease; N18.3 Chronic kidney disease, stage 3 (moderate); E11.42 Type 2 diabetes mellitus with diabetic polyneuropathy; R00.0 Tachycardia, unspecified; E66.01 Morbid (severe) obesity due to excess calories; G47.33 Obstructive sleep apnea (adult) (pediatric); E78.5 Hyperlipidemia, unspecified; I51.7 Cardiomegaly; Z85.528 Personal history of other malignant neoplasm of kidney; Z90.5 Acquired absence of kidney
CPT/HCPCS: 36410; 36415; 80053; 80061; 82805; 83721; 87040; 87077; 87449; 93005; 94640; 96365; 96366; 96368; 96375; 99220; 99285; 99291; 36600; 71045; 81003; 83036; 83605; 83735; 83880; 84443; 84484; 85025; 85610; 85730; 87186; 87450; 87581; 93010; 94660; 99223; 99239; J0456; J0696; J1650; J1940; J2930; J7613; J7620

== ENCOUNTER 2019-03-07 13:11 | Outpatient (RCR) | payer OTHER, SELFPAY | END 2019-03-08 23:59 | disposition home or self-care (01) | LOC: CR 13:11 | PROVIDERS: PCP Family Medicine; Visit Provider Family Medicine | DX: I25.2 Old myocardial infarction (principal); I50.43 Acute on chronic combined systolic (congestive) and diastolic (congestive) heart failure; Z51.89 Encounter for other specified aftercare ==

== ENCOUNTER 2019-04-08 11:54 | Outpatient (RCR) | payer OTHER, SELFPAY | END 2019-04-08 23:59 | disposition home or self-care (01) | LOC: CR 11:54 | PROVIDERS: PCP Family Medicine; Visit Provider Family Medicine | DX: I25.2 Old myocardial infarction (principal); I50.43 Acute on chronic combined systolic (congestive) and diastolic (congestive) heart failure; Z51.89 Encounter for other specified aftercare | CPT/HCPCS: S9472 ==

== ENCOUNTER 2019-05-06 11:24 | Outpatient (RCR) | payer OTHER, SELFPAY | END 2019-05-08 23:59 | disposition home or self-care (01) | LOC: CR 11:24 | PROVIDERS: PCP Family Medicine; Visit Provider Family Medicine | DX: I25.2 Old myocardial infarction (principal); I50.43 Acute on chronic combined systolic (congestive) and diastolic (congestive) heart failure; Z51.89 Encounter for other specified aftercare | CPT/HCPCS: S9472 ==

== ENCOUNTER 2019-05-17 01:28 | Outpatient (CLI) | payer OTHER, SELFPAY ==
--- NOTE | 2019-05-17 09:46 | DI.US_ITS ---
SYMPTOM/DIAGNOSIS: INTERMITTENT SLURRED SPEECH R47.81 BILATERAL DUPLEX CAROTID ULTRASOUND: 05/17/19 Duplex evaluation of the carotid circulation was performed according to the usual protocol. There is minimal visible atheromatous plaque in the carotid bifurcations and carotid bulbs bilaterally. There is no significant flow velocity elevation and common internal or external carotid arteries. There is bilateral antegrade vertebral flow. CONCLUSION: No evidence of a hemodynamically significant carotid stenosis. Note is made of a right thyroid lobe mass measuring about 4.2 cm in greatest diameter which appears to have some intralesional vascular flow. Thyroid carcinoma not excluded. Biopsy recommended.
== END 2019-05-17 01:48 ==
PROVIDERS: PCP Family Medicine; Visit Provider Family Medicine
DX: R47.81 Slurred speech (principal); E07.89 Other specified disorders of thyroid
CPT/HCPCS: 93880

== ENCOUNTER 2019-06-08 13:41 | Outpatient (RCR) | payer OTHER, SELFPAY | END 2019-06-08 23:59 | disposition home or self-care (01) | LOC: CR 13:41 | PROVIDERS: PCP Family Medicine; Visit Provider Family Medicine | DX: I25.2 Old myocardial infarction (principal); I50.43 Acute on chronic combined systolic (congestive) and diastolic (congestive) heart failure; Z51.89 Encounter for other specified aftercare | CPT/HCPCS: S9472 ==

== ENCOUNTER 2019-06-10 04:14 | Outpatient (CLI) | payer OTHER, SELFPAY ==
[2019-06-10 10:19] LABS: TSH (W/Ref FT4) 1.45 uIU/mL (0.36-3.74)
== END 2019-06-10 04:34 ==
PROVIDERS: PCP Family Medicine; Visit Provider Family Medicine
DX: E04.1 Nontoxic single thyroid nodule (principal)
CPT/HCPCS: 36415; 84443

== ENCOUNTER 2019-06-20 16:29 | Outpatient (RCR) | payer OTHER, SELFPAY | END 2019-07-09 23:59 | disposition home or self-care (01) | LOC: CR 16:29 | PROVIDERS: PCP Family Medicine; Visit Provider Family Medicine | DX: I25.2 Old myocardial infarction (principal); I50.43 Acute on chronic combined systolic (congestive) and diastolic (congestive) heart failure; Z51.89 Encounter for other specified aftercare | CPT/HCPCS: S9472 ==

== ENCOUNTER 2019-11-22 15:34 | Emergency (ER) | payer OTHER, SELFPAY ==
[2019-11-22 15:37] VITALS: BP 137/79; PULSE 58; RESP 18; TEMP 36.8; O2SAT 97
--- NOTE | 2019-11-22 15:53 | ED.GENADUL_ITS ---
Discharge Plan Disposition Patient Disposition: HOME Condition: Stable Discharge Details Chief Complaint: Cellulitis Clinical Impression: Cellulitis and abscess of left lower extremity Primary Care Provider: Freeman Beaulieu ED Provider: Devika Sainz Home Meds and New Rx's Prescriptions: New clindamycin HCl [Cleocin HCl] 300 mg capsule 300 mg PO BID 7 Days Qty: 14 RF: 0 Continued gabapentin 600 mg tablet 600 mg PO HS Qty: 90 RF: 3 clopidogrel [Plavix] 75 mg tablet 75 mg PO DAILY RF: 0 hydralazine 50 mg tablet 50 mg PO BID Qty: 180 RF: 3 metoprolol succinate 25 mg tablet extended release 24 hr 25 mg PO DAILY Qty: 30 RF: 11 metoprolol succinate 50 mg tablet extended release 24 hr 50 mg PO DAILY Qty: 30 RF: 11 multivitamin 1 EACH capsule 1 cap PO DAILY RF: 0 omega-3 fatty acids-fish oil 1 EACH capsule 1 ea PO BID RF: 0 (DME) lancets [OneTouch UltraSoft Lancets] 1 EACH misc 1 ea Intradermal DAILY Qty: 100 RF: 5 hydrocortisone 28.4 GM cream 1 guillermo Topical TID PRNQty: 3 RF: 4 aspirin [Aspir-Low] 81 MG tablet,delayed release (DR/EC) 1 tab PO DAILY RF: 0 (DME) OneTouch Ultra Test strip 1 ea Miscellaneous DAILY Qty: 100 RF: 4 ergocalciferol (vitamin D2) [Vitamin D2] 50,000 unit capsule 50,000 unit PO Monthly Qty: 12 RF: 4 solifenacin [Vesicare] 5 mg tablet 5 mg PO DAILY Qty: 90 RF: 4 tamsulosin 0.4 mg capsule 0.4 mg PO DAILY Qty: 90 RF: 4 glipizide 5 mg tablet 5 mg PO DAILY Qty: 90 RF: 4 allopurinol 100 mg tablet 50 mg PO DAILY RF: 0 atorvastatin 80 mg tablet 80 mg PO DAILY Qty: 90 RF: 3 isosorbide mononitrate 30 mg tablet extended release 24 hr 30 mg PO DAILY Qty: 90 RF: 3 furosemide 40 mg tablet 40 mg PO DAILY Qty: 90 RF: 3 acetaminophen [Tylenol] 325 MG tablet 1 tab PO Q4H PRN PRN (Reason: joint pains or headache) Qty: 60 RF: 0 alum-mag hydroxide-simeth [Mag-Al Plus] 30 ML suspension 30 ml PO Q2H PRN PRNRF: 0 nystatin 60 GM powder 1 gm Topical BID RF: 0 Discharge Instructions Instructions: Cellulitis (ED) Additional Instructions: Make appointment with PCP in 3-5 days. Return to ED if increased reddness, swe lling, fever or any worsening or concerns. Referrals: Freeman Beaulieu [Primary Care Provider] - Discharge Data Discharge Physician: Naveen Martines Medical Decision Making 74 year old male presents with LLE erythema and warmth x 1 week. Reports increased pain at night. Also reports obtained a scratch to anterior friedman which took about an hour to stop bleeding. Patient is a Type 2 diabetic. Denies fever, chills, or myalgias. Has not been on antibiotics recently. Patient was given Rocephin 1 gm IM in department and discharged with prescription of Clindamycin 300 mg BID x 7 days. VSS, no fever, no chills. Labs not indicated at this time. Instructed to follow up with PCP in 3-5 days or return to ED if any concerns or worsening. Differential Diagnosis Differential Diagnosis: DVT, Rash, Periphreal Vascular disease Medical Records Medical records reviewed: Yes I reviewed the patient's medical records. HPI General Date/Time Provider Initiated Documentation: 11/22/19 15:52 . Limitations to Documentation: no limitations . Information obtained by: patient . History of Present Illness 74 year old M presents to the emergency department with the chief complaint of Left lower leg erythema and pain , described as moderate, with intensity rated at 5. Quality is described as aching, and is localized to the left and lower extremity (Left ankle and calf). Patient reports no radiation. Patient started experiencing this week(s) (1) and it has been constant. No relieving factors improve symptom(s), Movement worsens symptoms . Patient notes denies confusion, chest pain, fever/chills, malaise, nausea/vomiting and shortness of breath. Patient did receive the following treatments prior to arrival, none Related Data Home Medications Medication Instructions Recorded Confirmed hydrocortisone 1 guillermo TOPICAL TID PRN #3 script 03/25/13 09/05/19 lancets [OneTouch UltraSoft #100 ea 03/25/13 07/06/19 Lancets] multivitamin 1 cap PO DAILY 03/25/13 11/22/19 omega-3 fatty acids-fish oil 1 ea PO BID 03/25/13 11/22/19 acetaminophen [Tylenol] 1 tab PO Q4H PRN PRN #60 tab 08/29/15 11/22/19 alum-mag hydroxide-simeth [Mag-Al 30 ml PO Q2H PRN PRN btl 08/29/15 11/22/19 Plus] nystatin 1 gm TOPICAL BID jar 08/29/15 07/06/19 aspirin [Aspir-Low] 1 tab PO DAILY 10/09/15 11/22/19 blood sugar diagnostic #100 strip 11/15/18 09/05/19 ergocalciferol (vitamin D2) 1,250 50,000 unit PO Monthly #12 tab-cap 12/24/18 11/22/19 mcg (50,000 unit) capsule glipizide 5 mg tablet 5 mg PO DAILY #90 tab-cap 12/24/18 11/22/19 solifenacin 5 mg tablet 5 mg PO DAILY #90 tab 12/24/18 11/22/19 tamsulosin 0.4 mg capsule 0.4 mg PO DAILY #90 capcr 12/24/18 11/22/19 gabapentin 600 mg tablet 600 mg PO HS #90 tab-cap 01/27/19 11/22/19 clopidogrel 75 mg tablet 75 mg PO DAILY 02/25/19 11/22/19 hydralazine 50 mg tablet 50 mg PO BID #180 tab 03/21/19 11/22/19 metoprolol succinate 25 mg 25 mg PO DAILY #30 tab 03/21/19 11/22/19 tablet,extended release 24 hr metoprolol succinate 50 mg 50 mg PO DAILY #30 tab 03/21/19 11/22/19 tablet,extended release 24 hr allopurinol 100 mg tablet 50 mg PO DAILY tab 03/22/19 11/22/19 atorvastatin 80 mg tablet 80 mg PO DAILY #90 tab 06/05/19 11/22/19 isosorbide mononitrate 30 mg 30 mg PO DAILY #90 tab 06/05/19 11/22/19 tablet,extended release 24 hr furosemide 40 mg tablet 40 mg PO DAILY #90 tab 09/19/19 11/22/19 clindamycin HCl [Cleocin HCl] 300 mg PO BID 7 Days #14 cap 11/22/19 Previous Rx's Medication Instructions Recorded acetaminophen [Tylenol] 1 tab PO Q4H PRN PRN #60 tab 08/29/15 alum-mag hydroxide-simeth [Mag-Al 30 ml PO Q2H PRN PRN btl 08/29/15 Plus] nystatin 1 gm TOPICAL BID jar 08/29/15 blood sugar diagnostic #100 strip 11/15/18 ergocalciferol (vitamin D2) 1,250 50,000 unit PO Monthly #12 tab-cap 12/24/18 mcg (50,000 unit) capsule glipizide 5 mg tablet 5 mg PO DAILY #90 tab-cap 12/24/18 solifenacin 5 mg tablet 5 mg PO DAILY #90 tab 12/24/18 tamsulosin 0.4 mg capsule 0.4 mg PO DAILY #90 capcr 12/24/18 gabapentin 600 mg tablet 600 mg PO HS #90 tab-cap 01/27/19 hydralazine 50 mg tablet 50 mg PO BID #180 tab 03/21/19 metoprolol succinate 25 mg 25 mg PO DAILY #30 tab 03/21/19 tablet,extended release 24 hr metoprolol succinate 50 mg 50 mg PO DAILY #30 tab 03/21/19 tablet,extended release 24 hr atorvastatin 80 mg tablet 80 mg PO DAILY #90 tab 06/05/19 isosorbide mononitrate 30 mg 30 mg PO DAILY #90 tab 06/05/19 tablet,extended release 24 hr furosemide 40 mg tablet 40 mg PO DAILY #90 tab 09/19/19 clindamycin HCl [Cleocin HCl] 300 mg PO BID 7 Days #14 cap 11/22/19 Allergies Allergy/AdvReac Type Severity Reaction Status Date / Time iohexol AdvReac Unknown Unverified 11/22/19 15:43 novacaine Allergy Intermediate Uncoded 11/22/19 15:43 General Stated Complaint: Cellulitis SONA: 3 Review of Systems All systems reviewed & are unremarkable except as noted in HPI and below Constitutional Constitutional: Denies body ache(s), Denies chills, Denies fatigue, Denies fever(s), Denies lethargy, Denies night sweats and Denies weakness Cardiovascular Cardiovascular: Denies diaphoresis Musculoskeletal Musculoskeletal: Reports as per HPI, Denies abnormal gait, Denies muscle cramps, Denies muscle weakness, Denies stiffness and Denies tingling Integumentary/Breasts Skin/Breast: Denies unusual bruising Comments: Erythema and warmth noted to left lower extremity. No pitting edema. Neurologic Neurologic: Denies abnormal gait, Denies tingling and Denies weakness Endocrine Endocrine: Denies fatigue [facility] Medical History Cholelithiasis (Chronic) Cholelithiasis without obstruction (Resolved) per CT Chronic kidney insufficiency (Chronic) a. 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) Right nephrectomy 11/30/15 Common bile duct calculi (Resolved 09/18/17) Congestive heart failure (Chronic) Diabetes (Chronic) Diabetes mellitus (Chronic 07/20/13) Diabetic polyneuropathy associated with type 2 diabetes mellitus (Chronic 07/24/15) Disorder characterized by back pain (Chronic) Edema (Chronic) Essential hypertension (Chronic 07/24/15) Heart failure with preserved ejection fraction (Chronic 08/22/15) admitted 08/20/2015 for complicated UTI, found to have exophytic renal tumor and went into acute CHF BNP 1392, nonspecific troponin elevations up to 0.41, echo done 08/23/2015 LVEF 60-65%, no RWMA, no valvulopathy History of nephrolithiasis (Chronic) HTN (hypertension) (Chronic) Hypercholesterolemia (Chronic) Hyperkalemia (Chronic 07/01/18) On Kaexylate Hyperlipidemia (Chronic) Joint pain (Chronic) Kidney calculus (Chronic 10/08/03) left kidney Mild nonproliferative diabetic retinopathy (Chronic) 12/19/14; OPTICAL EXPRESSIONS Morbid obesity (Chronic) Obesity (Chronic) Obstructive sleep apnea (Chronic) Obstructive sleep apnea (Chronic) Osteoarthritis (Chronic) Osteoarthrosis (Chronic) Primary osteoarthritis of left knee (Chronic 07/01/18) Tubular adenoma of colon (Resolved 03/20/17) Type II diabetes mellitus (Chronic) Urgency incontinence (Chronic) Surgical History Colonoscopy - MAC (03/20/17) History of nephrectomy (Acute) Right side Hx of cholecystectomy (Chronic) Kidney Surgery h/o kidney cancer Family History Mother Essential hypertension Father Essential hypertension Sister Essential hypertension Heart disease Brother Diabetes Grandmother Personal history of malignant neoplasm Social History Smoking/Tobacco Use Status: Former Tobacco Use Tobacco: How many years used: 6 Alcohol Intake: never Drug use: Never Substance use type: does not use Household members: family and other Details: niece Housing: apartment current occupation: retired bridge worker at [employer]; formerly lived [place], [place] Do you feel safe at home: Yes Do you feel safe in your relationship?: Yes Exam Narrative Exam Narrative: Erythema noted to left lower extremity. Small excoriations noted to leg. Dorsal pedal pulses intact. Small abrasion noted over anterior friedman. No active bleeding noted. Const General: cooperative, healthy appearing, comfortable, no acute distress, well developed and well groomed Nutritional Appearance: overweight Orientation: alert, awake and oriented x3 Chest Chest: normal inspection of the chest Resp Effort & Inspection: normal respiratory effort and able to speak in complete sentences Skin General skin exam: erythema and excoriation(s) Trauma: abrasion (lefat superfiscial anterior friedman) Extrem General: normal to inspection, normal capillary refill, no clubbing, cyanosis or edema, no pedal edema and no calf tenderness Left lower extremity: lower leg Details: erythema, tenderness, localized swelling, non-pitting edema and warmth Course Vital Signs Vital signs: Vital Signs Temperature 36.8 C 11/22/19 15:37 Pulse 58 L 11/22/19 15:37 Respiratory Rate 18 11/22/19 15:37 Blood Pressure 137/79 11/22/19 15:37 Pulse Oximetry 97 11/22/19 15:37 Temperature 36.8 C 11/22/19 15:37 Temperature Source Skin 11/22/19 15:37 Pulse 58 L 11/22/19 15:37 Respiratory Rate 18 11/22/19 15:37 Respiratory Effort 11/22/19 15:42 Blood Pressure 137/79 11/22/19 15:37 Blood Pressure Position Sitting 11/22/19 15:37 Pulse Oximetry 97 11/22/19 15:37 Oxygen Delivery Method Room Air 11/22/19 15:37 Oxygen Flow Rate 0 11/22/19 15:37 Pain Level 2 11/22/19 15:37
[2019-11-22] MEDS: cefTRIAXone 1 GM VIAL IM (16:31)
[2019-11-22 17:07] VITALS: BP 111/57; PULSE 44; RESP 20; TEMP 36.4; O2SAT 98
== END 2019-11-22 17:10 | disposition home or self-care (01) ==
PROVIDERS: Emergency Provider Registered Nurse Emergency; PCP Family Medicine
DX: L03.116 Cellulitis of left lower limb (principal); L02.416 Cutaneous abscess of left lower limb; S80.812A Abrasion, left lower leg, initial encounter; X58.XXXA Exposure to other specified factors, initial encounter; E11.22 Type 2 diabetes mellitus with diabetic chronic kidney disease; Z79.84 Long term (current) use of oral hypoglycemic drugs; N18.3 Chronic kidney disease, stage 3 (moderate); I12.9 Hypertensive chronic kidney disease with stage 1 through stage 4 chronic kidney disease, or unspecified chronic kidney disease
CPT/HCPCS: 96372; 99284; J0696

== ENCOUNTER 2019-12-09 00:12 | Outpatient (CLI) | payer OTHER, SELFPAY ==
[2019-12-09 12:14] LABS: Abs Immature Grans 0.02 k/cumm (0.0-0.09); Absolute Basophil Count 0.03 k/cumm (0.0-0.2); Absolute Eosinophil Count 0.68 k/cumm (0.0-0.7); Absolute Lymphocyte Count 1.38 k/cumm (1.2-3.4); Absolute Monocyte Count 0.67 k/cumm (0.11-0.7); Absolute Neutrophil Count 3.27 k/cumm (1.2-6.7); Basophils % 0.5; Eosinophils % 11.2; HCT 34.2 % (40.0-50.0); HGB 10.9 g/dL (13.5-17.5); Immature Grans % 0.3 %; Lymphocytes % 22.8; Mean Corp. HGB Concentration 31.9 g/dL (32.0-36.0); Mean Corpuscular Hemoglobin 32.7 pg (27.0-33.0); Mean Corpuscular Volume 102.7 fL (80-95); Mean Platelet Volume 9.7 fL (8.0-11.0); Monocytes % 11.1; Neutrophils % 54.1; Platelet Count 169 x1000/uL (130-400); RBC 3.33 m/cumm (4.50-6.00); RBC Distribution Width 12.7 % (11.8-14.1); White Blood Cell Count 6.05 k/cumm (4.4-10.8)
[2019-12-09 12:27] LABS: Hemoglobin A1C 5.4 % (3.8-5.6)
[2019-12-09 12:28] LABS: ALT 47 U/L (16-63); AST 35 U/L (15-37); Albumin 3.3 g/dL (3.4-5.0); Alkaline Phosphatase 144 U/L (46-116); Anion Gap 10.3 mmol/L (3-11); BUN 66 mg/dL (7-18); Bilirubin, Total 0.5 mg/dL (0.2-1.0); CO2 23.7 mmol/L (21.0-32.0); CREATININE 2.55 mg/dL (0.70-1.30); Calcium 7.9 mg/dL (8.5-10.1); Chloride 108 mmol/L (98-107); Estimated GFR 24.87 (mL/min/1.73m2); Glucose 85 mg/dL (74-106); Potassium 4.6 mmol/L (3.5-5.1); Sodium 142 mmol/L (136-145); Total Protein 6.7 g/dL (6.4-8.2)
== END 2019-12-09 00:32 ==
PROVIDERS: PCP Family Medicine; Visit Provider Family Medicine
DX: E11.9 Type 2 diabetes mellitus without complications (principal); I10 Essential (primary) hypertension; N18.9 Chronic kidney disease, unspecified
CPT/HCPCS: 36415; 80053; 83036; 85025

== ENCOUNTER 2020-02-12 21:38 | Emergency (ER) | payer OTHER, SELFPAY ==
[2020-02-12] VITALS (13 sets, daily range): BP systolic 94–137; BP diastolic 60–75; PULSE 96–109; RESP 14–35; TEMP 36.9; O2SAT 92–98
--- NOTE | 2020-02-12 22:11 | ED.GENADUL_ITS ---
Discharge Plan Disposition Patient Disposition: [facility] Condition: Stable Discharge Details Chief Complaint: RespSymp Clinical Impression: Non-ST elevated myocardial infarction (non-STEMI), Congestive heart failure Primary Care Provider: Freeman Beaulieu ED Provider: Lenny Quezada [place] Meds and New Rx's Prescriptions: No Action omega 3 3,000 mg PO DAILY RF: 0 cranberry conc-ascorbic acid 4,200-20 mg capsule 1 cap PO DAILY RF: 0 hydralazine 50 mg tablet 50 mg PO BID Qty: 180 RF: 3 multivitamin 1 EACH capsule 1 cap PO DAILY RF: 0 (DME) lancets [OneTouch UltraSoft Lancets] 1 EACH misc 1 ea Intradermal DAILY Qty: 100 RF: 5 hydrocortisone 28.4 GM cream 1 guillermo Topical TID PRNQty: 3 RF: 4 aspirin [Aspir-Low] 81 MG tablet,delayed release (DR/EC) 1 tab PO DAILY RF: 0 (DME) OneTouch Ultra Test strip 1 ea Miscellaneous DAILY Qty: 100 RF: 4 ergocalciferol (vitamin D2) [Vitamin D2] 50,000 unit capsule 50,000 unit PO Monthly Qty: 12 RF: 4 solifenacin [Vesicare] 5 mg tablet 5 mg PO DAILY Qty: 90 RF: 4 tamsulosin 0.4 mg capsule 0.4 mg PO DAILY Qty: 90 RF: 4 glipizide 5 mg tablet 5 mg PO DAILY Qty: 90 RF: 4 allopurinol 100 mg tablet 50 mg PO DAILY RF: 0 isosorbide mononitrate 30 mg tablet extended release 24 hr 30 mg PO DAILY Qty: 90 RF: 3 furosemide 40 mg tablet 40 mg PO DAILY Qty: 90 RF: 3 gabapentin 600 mg tablet 600 mg PO HS Qty: 90 RF: 3 clopidogrel [Plavix] 75 mg tablet 75 mg PO DAILY Qty: 90 RF: 1 acetaminophen [Tylenol] 325 MG tablet 1 tab PO Q4H PRN PRN (Reason: joint pains or headache) Qty: 60 RF: 0 nystatin 60 GM powder 1 gm Topical BID RF: 0 Medical Decision Making Patient presenting with acute onset of shortness of breath without associated symptoms. He denies fever, cough, exposure to COVID. Does have prior history of non-STEMI and CHF one year ago with similar presentation. He is maintaining his saturation on 6 L but he is very uncomfortable. We will try to rescue her CPAP and have asked respiratory to come in. IV established and laboratory studies obtained. Initial EKG shows a left bundle branch block which is old. There is some inversion and depression in the lateral leads. Slight elevation in V2. CT chest with with contrast to rule out PE was ordered but canceled as patient has chronic renal failure as well as allergy to iohexol. Laboratory studies are significant include a white count of 14.8 with normal neutrophils and lymphocytes. Minimal anemia. Normal platelet count. Initial VBG showed a pH 7.16 and a PCO2 of 67 with a bicarb of 24. Electrolytes are fine. BUN of 72 with a creatinine of 2.6 which is around his baseline. Lactic acid is normal. Magnesium is normal. Ferritin is normal. Liver function minimally elevated. C-reactive protein only slightly up at 1.75. Procalcitonin is normal. Age-adjusted d-dimer is negative. BNP elevated to 4675. Previously elevated to this level with last non-STEMI last year. First troponin positive at 1.03. Patient work of breathing did not get better with the rescue of CPAP. Given normal ferritin, essentially normal C-reactive protein, negative lymphopenia or thrombocytopenia and no report of fever, cough or exposure I do not think this is COVID. We elected to change him to our BiPAP machine with viral filter. With this he became much more comfortable in his work of breathing resolved. He did receive aspirin once his positive troponin came back. He was started on heparin per [facility] protocol. CT of the chest shows diffuse groundglass changes throughout the lungs as well as bilateral pleural effusions more consistent with CHF and with COVID. Second EKG essentially unchanged with a little bit more elevation in V1, V2, V3. At this time I feel this is a non-STEMI with CHF and not COVID or infectious. Call placed to [facility] to speak to cardiology. Case discussed at length with [employer] [address] Calles. Agrees with assessment and plan. Rand is in place and patient having some diuresis. Second dose of 40 mg Lasix given. Low-dose nitroglycerin drip started. C ontinues on heparin. Much more comfortable on BiPAP. Patient accepted for admission to cardiology under Dr. Todd. Patient discussed at length with transport crew, DEBORAH. They are comfortable ta pérez patient down on the BiPAP. They understand that they have to place him on 6 L to take him into the hospital to the cardiology floor. [facility] is not allowing BiPAP unless and negative pressure rooms. Patient confirms that he wants to be a full code. He was transported in [facility] in stable condition. Medical Records Medical records reviewed: Yes I reviewed the patient's medical records. Lab Data Lab results reviewed: Yes I reviewed the patient's lab results. ECG Data Attestation: I personally reviewed and interpreted this ECG (s) as follows: Prior ECG tracings: available for review Interpretation: EKG #1: Sinus tachycardia at 107. Left bundle branch block.. Inverted T waves in [address] depression in V5 V6. Some ST elevation in V2. Artifact in V3. EKG #2: Sinus tachycardia at 104. Continued left bundle branch block. Continued T wave inversion in [address] aVL. Continued minor ST depression in V5 V6. Elevation less than 5 mm in V1 V2 V3. HPI General Mode of arrival: EMS . Date/Time Provider Initiated Documentation: 02/12/20 22:03 . Limitations to Documentation: no limitations . Information obtained by: patient, EMS, RN notes reviewed and old records reviewed . HPI Narrative: Patient presents to ED with shortness of breath. Patient reports developing shortness of breath this afternoon. It was acute in onset. It was unassociated with any other symptoms. It progressed throughout the afternoon to the point this evening he called EMS. Initial saturations seemed to be okay but the pulse oximeter machine broke. He was placed on 4 L nasal cannula and transported in. On arrival the patient is in moderate respiratory distress with increased work of breathing. Initial room air saturations here were noted to be in the mid to high 70s. He denies having any fever or cough. He has been self isolating at home and avoiding the public. He has not been exposed to anyone who is been ill and has not been out of the state. He has no chest pain or pressure. He has no lightheadedness, diaphoresis, nausea. He reports having a similar presentation 1 year ago and was at that time diagnosed with a non-STEMI and CHF. Related Data Home Medications Medication Instructions Recorded Confirmed hydrocortisone 1 guillermo TOPICAL TID PRN #3 script 03/25/13 02/12/20 lancets [OneTouch UltraSoft #100 ea 03/25/13 12/28/19 Lancets] multivitamin 1 cap PO DAILY 03/25/13 02/12/20 acetaminophen [Tylenol] 1 tab PO Q4H PRN PRN #60 tab 08/29/15 02/12/20 nystatin 1 gm TOPICAL BID jar 08/29/15 02/12/20 aspirin [Aspir-Low] 1 tab PO DAILY 10/09/15 02/12/20 blood sugar diagnostic #100 strip 11/15/18 12/28/19 ergocalciferol (vitamin D2) 1,250 50,000 unit PO Monthly #12 tab-cap 12/24/18 02/12/20 mcg (50,000 unit) capsule glipizide 5 mg tablet 5 mg PO DAILY #90 tab-cap 12/24/18 02/12/20 solifenacin 5 mg tablet 5 mg PO DAILY #90 tab 12/24/18 02/12/20 tamsulosin 0.4 mg capsule 0.4 mg PO DAILY #90 capcr 12/24/18 02/12/20 hydralazine 50 mg tablet 50 mg PO BID #180 tab 03/21/19 02/12/20 allopurinol 100 mg tablet 50 mg PO DAILY tab 03/22/19 02/12/20 isosorbide mononitrate 30 mg 30 mg PO DAILY #90 tab 06/05/19 02/12/20 tablet,extended release 24 hr furosemide 40 mg tablet 40 mg PO DAILY #90 tab 09/19/19 02/12/20 cranberry concentrate-ascorbic 1 cap PO DAILY cap 12/05/19 02/12/20 acid 4,200 mg-20 mg capsule omega 3 3,000 mg PO DAILY 12/05/19 02/12/20 gabapentin 600 mg tablet 600 mg PO HS #90 tab-cap 12/15/19 02/12/20 clopidogrel 75 mg tablet 75 mg PO DAILY #90 tab 12/16/19 02/12/20 Previous Rx's Medication Instructions Recorded acetaminophen [Tylenol] 1 tab PO Q4H PRN PRN #60 tab 08/29/15 nystatin 1 gm TOPICAL BID jar 08/29/15 blood sugar diagnostic #100 strip 11/15/18 ergocalciferol (vitamin D2) 1,250 50,000 unit PO Monthly #12 tab-cap 12/24/18 mcg (50,000 unit) capsule glipizide 5 mg tablet 5 mg PO DAILY #90 tab-cap 12/24/18 solifenacin 5 mg tablet 5 mg PO DAILY #90 tab 12/24/18 tamsulosin 0.4 mg capsule 0.4 mg PO DAILY #90 capcr 12/24/18 hydralazine 50 mg tablet 50 mg PO BID #180 tab 03/21/19 isosorbide mononitrate 30 mg 30 mg PO DAILY #90 tab 06/05/19 tablet,extended release 24 hr furosemide 40 mg tablet 40 mg PO DAILY #90 tab 09/19/19 gabapentin 600 mg tablet 600 mg PO HS #90 tab-cap 12/15/19 clopidogrel 75 mg tablet 75 mg PO DAILY #90 tab 12/16/19 Allergies Allergy/AdvReac Type Severity Reaction Status Date / Time iohexol AdvReac Unknown Verified 02/12/20 21:52 novacaine Allergy Intermediate Uncoded 02/12/20 21:52 General Stated Complaint: RespSymp SONA: 2 Review of Systems Narrative: Review of systems not obtained due to acuity of situation. 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) Right nephrectomy 11/30/15 Diabetes mellitus (Chronic 07/20/13) Diabetic polyneuropathy associated with type 2 diabetes mellitus (Chronic 07/24/15) Edema (Chronic) Essential hypertension (Chronic 07/24/15) Heart failure with preserved ejection fraction (Chronic 08/22/15) admitted 08/20/2015 for complicated UTI, found to have exophytic renal tumor and went into acute CHF BNP 1392, nonspecific troponin elevations up to 0.41, echo done 08/23/2015 LVEF 60-65%, no RWMA, no valvulopathy History of nephrolithiasis (Chronic) Hypercholesterolemia (Chronic) Hyperkalemia (Chronic 07/01/18) On Kaexylate Joint pain (Chronic) Kidney calculus (Chronic 10/08/03) left kidney Mild nonproliferative diabetic retinopathy (Chronic) 12/19/14; OPTICAL EXPRESSIONS Morbid obesity (Chronic) Obstructive sleep apnea (Chronic) Osteoarthritis (Chronic) Tubular adenoma of colon (Resolved 03/20/17) Urgency incontinence (Chronic) Surgical History Colonoscopy - MAC (03/20/17) History of nephrectomy (Acute) Right side Hx of cholecystectomy (Chronic) Social History Smoking/Tobacco Use Status: Former Tobacco Use Tobacco: How many years used: 6 Alcohol Intake: never Drug use: Never Substance use type: does not use Household members: family and other Details: niece Housing: apartment current occupation: retired material preparation worker at [employer]; formerly lived [place], [place] Do you feel safe at home: Yes Do you feel safe in your relationship?: Yes Exam Narrative Exam Narrative: Vitals: Afebrile. Mild tachycardia with normal blood pressure. Moderate respiratory distress with increased work of breathing and mid 90 pulse ox on 6 L nasal cannula. Const: Morbidly Obese male in moderate distress. HEENT: NC/AT. Normal facial exam. Eyes: Normal conjunctiva and sclera. Neck: Supple. Trachea midline. Lungs: Increased work of breathing/moderate distress. Decreased breath sounds throughout. Cor: RRR without murmur/gallop. Good radial pulses. GI: Soft. NT/ND. No guarding or rebound. Neuro: A+O x 3. Normal speech, mentation. Cranial nerves II - XII grossly intact. No gross motor or sensory deficit. Ext: No C/C. Bilateral lower extremity edema. Skin: Warm and dry without rash. Course Vital Signs Vital signs: Vital Signs Temperature 98.4 F 02/12/20 21:46 Pulse 103 H 02/12/20 21:46 Respiratory Rate 32 H 02/12/20 21:46 Blood Pressure 128/60 02/12/20 21:46 Pulse Oximetry 96 02/12/20 21:46 Temperature 98.4 F 02/12/20 21:46 Temperature Source Skin 02/12/20 21:46 Pulse 103 H 02/12/20 21:46 Respiratory Rate 32 H 02/12/20 21:46 Respiratory Effort Grunting 02/12/20 21:46 Respiratory Depth Shallow 02/12/20 21:46 Blood Pressure 128/60 02/12/20 21:46 Pulse Oximetry 96 02/12/20 21:46 Oxygen Delivery Method Non-Rebreather 02/12/20 21:46 Oxygen Flow Rate 10 02/12/20 21:46 Lab/Test Results Lab/Test Results: 02/12/20 22:07 Blood Blood Culture - Pending 02/12/20 22:07 Blood Blood Culture - Pending Critical Care Time Critical Care Time Critical Care Time: Yes Total Critical Care Time: 75 Attestation: Upon my evaluation, this patient had a high probability of imminent or life- threatening deterioration, which required my direct attention, intervention, and personal management. I have personally provided minutes of critical care time exclusive of time spent on separately billable procedures. Time includes review of laboratory data, radiology results, discussion with consultants, and monitoring for potential decompensation. Interventions were performed as documented above.
[2020-02-12] MEDS: Lactated Ringers 1,000 ML 100 ML IV (22:16)
[2020-02-12 22:24] LABS: Abs Immature Grans 0.06 k/cumm (0.0-0.09); Absolute Basophil Count 0.03 k/cumm (0.0-0.2); Absolute Eosinophil Count 0.43 k/cumm (0.0-0.7); Absolute Lymphocyte Count 3.14 k/cumm (1.2-3.4); Absolute Monocyte Count 1.04 k/cumm (0.11-0.7); Basophils % 0.2; Eosinophils % 2.9; HCT 37.5 % (40.0-50.0); HGB 12.1 g/dL (13.5-17.5); Immature Grans % 0.4 %; Lymphocytes % 21.2; Mean Corp. HGB Concentration 32.3 g/dL (32.0-36.0); Mean Corpuscular Hemoglobin 33.6 pg (27.0-33.0); Mean Corpuscular Volume 104.2 fL (80-95); Neutrophils % 68.3; Platelet Count 163 x1000/uL (130-400); RBC Distribution Width 13.1 % (11.8-14.1); White Blood Cell Count 14.79 k/cumm (4.4-10.8)
[2020-02-12 22:27] LABS: BE (Venous) -4.7 mmol/L (-3-3); HCO3 (Venous) 24 mmol/L (22-28); O2 Sat (Venous) 80 % (70-80); TCO2 (Venous) 23 mmol/L (22-29); pO2 (Venous) 53 mm/Hg (28-44)
[2020-02-12 22:31] LABS: pH (Venous) 7.16 (7.35-7.45)
[2020-02-12 22:32] LABS: pCO2 (Venous) 67 mm/Hg (34-47)
[2020-02-12 22:33] LABS: Lactate 1.3 mmol/L (0.6-1.4)
--- NOTE | 2020-02-12 22:37 | DI.CT_ITS ---
EXAM: CT CHEST WO CLINICAL HISTORY: SOB with low saturations. TECHNIQUE: Imaging protocol: Axial computed tomography images were obtained and coronal and sagittal reformatted images were created and reviewed. COMPARISON: ABD PELVIS WO CONTRAST from 04/22/2018 XR PORTABLE CHEST AP from 02/10/2019 FINDINGS: Tracheobronchial tree: Patent where visualized. Mediastinum and [place]: No dominant adenopathy or fluid collection. Pulmonary parenchyma: There is an area of focal consolidation with air bronchograms in the left upper lobe. There are diffuse bilateral ground-glass opacities present. There is septal thickening bilat erally in the basilar regions. Pleura: Bilateral pleural effusions are present. There is a small to moderate right pleural effusion and a small left pleural effusion. Heart: Heart is enlarged. Moderate coronary artery calcifications are present. No pericardial effus ion is present. Aorta: Thoracic aorta non-dilated. Atherosclerosis. Upper abdomen: There is a stable hypodense lesion in the right lobe of the liver. This was present on the CT scan from 04/22/2018. Patient is status post cholecystectomy. There is an exophytic left r enal cyst which is stable. Lymph nodes: Within normal limits. 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 Thyroid gland: There is a 5.5 x 3.2 cm right thyroid lobe mass. It does displace the trachea to the left. Other: Patient motion artifact. IMPRESSION: 1. Diffuse bilateral ground-glass opacities and basilar septal thickening. Bilateral pleural effusio ns. The findings raise a question of pulmonary edema or atypical infection. COVID-19 cannot be enti rely excluded. Pleural effusions, however, are an atypical feature. 2. Left apical consolidation with air bronchograms which may represent infection or edema. 3. Bilateral pleural effusions. DATA REPOSITORY: All CT scans at this facility are submitted to the National Radiology Data Registry (NRDR) Dose Index Registry (DIR) with the [employer] (A[employer]). RADIATION OPTIMIZATION: All CT scans at this facility use at least one of these dose optimization te chniques: automated exposure control; mA and/or kV adjustment per patient size (includes targeted exa ms where dose is matched to clinical indication); or iterative reconstruction.
[2020-02-12 22:41] LABS: ALT 78 U/L (16-63); AST 65 U/L (15-37); Albumin 3.5 g/dL (3.4-5.0); Alkaline Phosphatase 191 U/L (46-116); Anion Gap 9.1 mmol/L (3-11); BUN 72 mg/dL (7-18); Bilirubin, Total 0.6 mg/dL (0.2-1.0); C-Reactive Protein 1.75 mg/dL (0.0-0.3); CO2 25.9 mmol/L (21.0-32.0); CREATININE 2.61 mg/dL (0.70-1.30); Chloride 107 mmol/L (98-107); Estimated GFR 24.21 (mL/min/1.73m2); Glucose 133 mg/dL (74-106); INR 1.1 (0.9-1.1); PTT Activated 27.2 sec (21.0-31.4); Potassium 4.6 mmol/L (3.5-5.1); Sodium 142 mmol/L (136-145); Total Protein 8.1 g/dL (6.4-8.2)
--- NOTE | 2020-02-12 22:41 | NUR.NOTE ---
Nursing Note: RT heret o start pt on C PAP
[2020-02-12 22:45] LABS: NT-proBNP 4675 pg/mL (<300)
[2020-02-12 22:47] LABS: Troponin I 1.03 ng/Ml (<0.06)
[2020-02-12 22:54] LABS: D-Dimer 682 ng/mlFEU (<500)
[2020-02-12] MEDS: Aspirin 81 MG CHEW 324 MG CH (22:56)
--- NOTE | 2020-02-12 22:57 | DI.VRAD_ITS ---
PROCEDURE INFORMATION: Exam: CT Chest Without Contrast Exam date and time: 02/12/2020 10:31 PM Age: 74 years old Clinical indication: Shortness of breath; Patient HX: SOB w/low saturations. Suspect for covid 19. Unable to hold breath TECHNIQUE: Imaging protocol: Computed tomography of the chest without contrast. Radiation optimization: All CT scans at this facility use at least one of these dose optimization techniques: automated exposure control; mA and/or kV adjustment per patient size (includes targeted exams where dose is matched to clinical indication); or iterative reconstruction. COMPARISON: CR XR PORTABLE CHEST AP 02/10/2019 6:00 PM FINDINGS: Thyroid: 5.5 x 3.2 cm right thyroid lobe mass. Lungs: Diffuse bilateral ground-glass opacity and basilar predominant septal thickening. More discrete left apical consolidation with air bronchogram. Pleural space: Right greater than left small bilateral pleural effusions. Heart: Cardiomegaly. Coronary artery calcifications. Aorta: The aorta demonstrates mild atherosclerotic calcification. Lymph nodes: No pathologically enlarged lymph nodes. Liver: Abdomen:?3.4 by 2.5 cm ill-defined hypodense lesion in hepatic segment 6/7 was likely present on prior 04/22/2018 CT per report (images not available for review). Gallbladder and bile ducts: Status post cholecystectomy. Kidneys and ureters: Simple appearing exophytic left renal cyst. Bones/joints: Unremarkable. No acute fracture. Soft tissues: Unremarkable. Other findings: Motion degradation somewhat limits evaluation. IMPRESSION: 1. Diffuse bilateral ground-glass opacity and basilar predominant septal thickening. While SARS-CoV-2 cannot be excluded, the pleural effusions are an atypical feature and suggest pulmonary edema or other viral/atypical infection. 2. More discrete left apical consolidation with air bronchograms may also represent infection or airspace edema, however recommend follow-up imaging after treatment to document resolution. 3. Right greater than left small pleural effusions. Dictated and Authenticated by: Mick Dow MD. Ordering:MARLY Galvez MD
[2020-02-12 23:08] LABS: Ferritin 274 ng/mL (26-388); Magnesium 2.3 mg/dL (1.8-2.4)
[2020-02-12 23:10] LABS: Procalcitonin < 0.1 ng/mL
[2020-02-12] MEDS: Furosemide 40 MG/4 ML VIAL IVP (23:15)
--- NOTE | 2020-02-12 23:37 | NUR.NOTE ---
Nursing Note: RT here Pt started on BiPAP
[2020-02-13] VITALS (12 sets, daily range): BP systolic 122–135; BP diastolic 48–72; PULSE 79–96; RESP 25–33; O2SAT 95–98
[2020-02-13] MEDS: Furosemide 40 MG/4 ML VIAL IVP (00:06)
== END 2020-02-13 01:20 | disposition short-term general hospital (02) ==
PROVIDERS: Emergency Provider Emergency Medicine; PCP Family Medicine
DX: I21.4 Non-ST elevation (NSTEMI) myocardial infarction (principal); I13.0 Hypertensive heart and chronic kidney disease with heart failure and stage 1 through stage 4 chronic kidney disease, or unspecified chronic kidney disease; I50.9 Heart failure, unspecified; E11.42 Type 2 diabetes mellitus with diabetic polyneuropathy; E11.22 Type 2 diabetes mellitus with diabetic chronic kidney disease; N18.3 Chronic kidney disease, stage 3 (moderate)
CPT/HCPCS: 51702; 71250; 80053; 82805; 84145; 87040; 93005; 96361; 96365; 96367; 96375; 96376; 99285; 99291; 82728; 83605; 83735; 83880; 84484; 85025; 85379; 85610; 85730; 86140; 93010; J1940